=== PATIENT | female | born 1980 | race Caucasian/White ===

== ENCOUNTER 2018-12-19 17:25 | Emergency (ER) | payer OTHER, SELFPAY ==
[2018-12-19 17:38] VITALS: BP 126/68; PULSE 89; RESP 16; TEMP 37.4; O2SAT 98; BMI 29.7
--- NOTE | 2018-12-19 17:43 | DI.RAD.S_ITS ---
PROCEDURE: XR ANKLE LT MIN 3V INDICATIONS: L lateral ankle pain and swelling, inverted L foot 2wks ago TECHNIQUE: 3 views of the ankle were acquired. COMPARISON: None. FINDINGS: Bones: No fractures or dislocations. Ankle mortise is normally aligned. No suspicious bony lesions. There is a small developing plantar calcaneal spur. A bipartite medial sesamoid is incidentally noted. Soft tissues: No tibiotalar joint effusion. Achilles tendon appears normal in thickness. IMPRESSION: No acute osseous abnormality of the left ankle. Dictated by: Vijay Urbano M.D. on 12/19/2018 at 18:54 Approved by: Vijay Urbano M.D. on 12/19/2018 at 18:55
[2018-12-19] MEDS: IBUPROFEN 400 MG TABLET PO (17:46)
--- NOTE | 2018-12-19 18:29 | PC.NURSE ---
rolled left ankle 2 weeks ago, feeling fine, till moved the lawn, now with severe left ankle pain. denies fever.
--- NOTE | 2018-12-19 18:34 | PC.NURSE ---
Addendum entered by Vy Pichardo R.N. 12/19/18 18:35: has been treating the foot with ice and heat. Original Note: rolled ankle at home 2 weeks, moved the lawn yesterday, then starting having pain and swelling and worsen today.
--- NOTE | 2018-12-19 19:08 | ED.LOWEXIN ---
HPI - Extremity Injury (Lower) General Chief Complaint: Extremity Injury, Lower Stated Complaint: Lt ankle pain Time Seen by Provider: 12/19/18 19:02 Source: patient Mode of arrival: ambulatory Limitations: no limitations History of Present Illness HPI Narrative: Patient is a 38-year-old female presents with left ankle pain and swelling. She says she is about 2 weeks ago but was walking on it 30 min afterwards she really has not had any problem. Yesterday she said she mowed a large lawn and today it is significantly more swollen. She did not fall again her injury yesterday. She has no numbness or tingling. complaint: ankle injury Onset (ago): week(s) (2) Related Data Home Medications Medication Instructions Recorded Confirmed No Known Home Medications 12/19/18 12/19/18 Allergies Allergy/AdvReac Type Severity Reaction Status Date / Time No Known Drug Allergies Allergy Verified 12/19/18 17:42 Review of Systems Review of Systems GENERAL: Denies chills,fever HEENT: Denies throat pain RESPIRATORY: Denies dyspnea, cough, wheezing CARDIOVASCULAR: Denies chest pain, palpitations GASTROINTESTINAL: Denies nausea, vomiting MUSCULOSKELETAL: See HPI SKIN: No rash, no laceration, no pruritus NEUROLOGIC: Denies weakness, dizziness, headache, numbness 8 point review of systems is negative except for those stated above and HPI PFSH Medical History Patient denies significant medical history (Acute) Surgical History H/O vaginal hysterectomy (Acute) Social History Smoking Status: Never smoker Social History (Updated 12/19/18 @ 19:15 by Deborah House DO) marital status: Smoking Status: Never smoker Exam Initial Vital Signs Initial Vital Signs: Vital Signs Temperature 99.4 F 12/19/18 17:38 Pulse Rate 89 12/19/18 17:38 Respiratory Rate 16 12/19/18 17:38 Blood Pressure 126/68 12/19/18 17:38 Pulse Oximetry 98 12/19/18 17:38 GENERAL: Well-appearing, well-nourished and in no acute distress. CARDIOVASCULAR: peripheral pulses in tact, cap refill <2 sec RESPIRATORY: No respiratory distress, speaks in full sentences without difficulty EXTREMITIES: Normal range of motion, no clubbing or edema. Neurovascularly intact Left ankle lateral malleoli swelling distal pedal pulse in tact. Painful range of motion but able to do a Achilles intact. NEUROLOGICAL: Cranial nerves II through XII grossly intact. Normal gait and speech. SKIN: Warm, dry, no petechiae, no rashes or lesions. Course Orders Ordered: ED Orders 12/19/18 17:43 XR ankle LT min 3V Stat Discontinued Medications Ibuprofen (Advil) 400 mg PO NOW ONE Stop: 12/19/18 17:44 Last Admin: 12/19/18 17:46 Dose: 400 mg Vital Signs - 8 hr 12/19/18 17:38 12/19/18 19:09 Temperature 99.4 F Pulse Rate 89 85 Respiratory Rate 16 16 Blood Pressure 126/68 Blood Pressure [Right Arm] 115/69 Pulse Oximetry 98 94 MDM - Extremity Injury (Lower) Imaging Data Left ankle x-ray: Radiologist's impression: PROCEDURE: XR ANKLE LT MIN 3V INDICATIONS: L lateral ankle pain and swelling, inverted L foot 2wks ago TECHNIQUE: 3 views of the ankle were acquired. COMPARISON: None. FINDINGS: Bones: No fractures or dislocations. Ankle mortise is normally aligned. No suspicious bony lesions. There is a small developing plantar calcaneal spur. A bipartite medial sesamoid is incidentally noted. Soft tissues: No tibiotalar joint effusion. Achilles tendon appears normal in thickness. IMPRESSION: No acute osseous abnormality of the left ankle. Dictated by: Vijay Urbano M.D. on 12/19/2018 at 18:54 Discharge Plan Departure Patient Disposition: Home Clinical Impression: Left ankle sprain Qualifiers: Encounter type: initial encounter Involved ligament of ankle: other ligament Qualified Code(s): S93.492A - Sprain of other ligament of left ankle, initial encounter Discharge Date/Time: 12/19/18 19:26 Interventions: ED Discharge Assessment Last Done: 12/19/18 19:24 Instructions: DI for Ankle Sprain Activity Restrictions/Additional Instructions: *You have been diagnosed with left ankle sprain *What to do: Increase activity as tolerated, rest, ice, rest need ankle brace. If no improvement in 4-6 weeks he may require an MRI *Continue to take medications as directed Motrin 800mg every 8 hr with food if needed for pain *Follow up with your primary care provider in 2-3 days *Return to ER if you should have worsening pain, inability to walk any new, worsening or concerning symptoms Prescriptions: No Action No Known Home Medications RF: 0 Referrals: [facility] [Outside]
[2018-12-19 19:09] VITALS: BP 115/69; PULSE 85; RESP 16; O2SAT 94
== END 2018-12-19 19:26 | disposition home or self-care (01) ==
PROVIDERS: Emergency Provider Emergency Medicine
DX: S93.492A Sprain of other ligament of left ankle, initial encounter (principal)
CPT/HCPCS: 73610; 99283

== ENCOUNTER → 2020-04-20 07:26 | Outpatient (CLI) | payer OTHER, SELFPAY ==
--- NOTE | 2020-04-20 | DI.US.S_ITS ---
PROCEDURE: US SOFT TISSUE HEAD AND NECK INDICATIONS: MASS BEHIND RIGHT EAR TECHNIQUE: Real-time scanning was performed of the neck region of interest, with image documentation. COMPARISON: [facility], CT, PE STUDY (CTA CHEST), 07/12/2015, 11:03. FINDINGS: Ill-defined hypoechoic area in the subcutaneous tissues posterior to the right ear measuring 1.1 x 0.7 x 0.5 cm. No internal vascularity is demonstrated. No posterior acoustic shadowing. No fluid collection. IMPRESSION: Ill-defined hypoechoic area behind the right ear measuring 1.1 cm. This could represent scar tissue or recurrent mass. If clinically indicated ultrasound guided biopsy could be performed. Report of a prior mass being removed. Correlate with prior pathology. Dictated by: Romero Fountain M.D. on 04/20/2020 at 8:26 Approved by: Romero Fountain M.D. on 04/20/2020 at 8:30
== END ==
PROVIDERS: PCP Family Medicine; Referring Provider Nurse Practitioner Family; Visit Provider Nurse Practitioner Family
DX: R22.0 Localized swelling, mass and lump, head (principal)
CPT/HCPCS: 76536

== ENCOUNTER → 2020-09-04 06:59 | Outpatient (CLI) | payer OTHER, SELFPAY ==
--- NOTE | 2020-09-04 | DI.MRI.S_ITS ---
PROCEDURE: MR FEMUR RT WO CON INDICATIONS: Pain in right lower leg TECHNIQUE: Noncontrast coronal and sagittal T1 spin echo and STIR; axial T1 spin echo and T2 fast spin echo with fat saturation through the right femur. COMPARISON: None. FINDINGS: Image quality: Excellent. Bones: The visualized bone marrow demonstrates normal signal on all sequences. The overlying cortex appears intact. No fractures lines or intra-osseous lesions. Soft tissues: Surface skin marker is placed over anterolateral aspect of mid thigh. The scanned muscles demonstrate normal overall bulk and internal signal. Subcutaneous tissues appear normal as well. No soft tissue masses are present. IMPRESSION: 1. No discrete soft tissue mass or fluid collection is seen in right thigh soft tissue. No muscle or tendon signal abnormality. 2. No marrow signal abnormality. No finding to explain patient's symptoms. Dictated by: Surya Graves M.D. on 09/04/2020 at 8:38 Approved by: Surya Graves M.D. on 09/04/2020 at 8:40
== END ==
PROVIDERS: PCP Student in an Organized Health Care Education/Training Program; Referring Provider Student in an Organized Health Care Education/Training Program; Visit Provider Student in an Organized Health Care Education/Training Program
DX: M79.661 Pain in right lower leg (principal)
CPT/HCPCS: 73718

== ENCOUNTER 2020-12-20 11:24 | Emergency (ER) | payer BC, OTHER, SELFPAY ==
[2020-12-20 11:25] VITALS: BP 137/73; PULSE 102; RESP 15; TEMP 37.6; O2SAT 97; BMI 31.7
--- NOTE | 2020-12-20 11:31 | DI.RAD.S_ITS ---
PROCEDURE: XR CHEST 1V INDICATIONS: chest pain TECHNIQUE: One view of the chest was acquired. COMPARISON: [facility], , CHEST 2 VIEW, 07/12/2015, 9:51. FINDINGS: Surgical changes and devices: None. Lungs and pleura: Lungs are clear. No pleural effusions or pneumothorax. Mediastinum: Mediastinal contours appear normal. Heart size is normal. Bones and chest wall: No suspicious bony lesions. Overlying soft tissues appear unremarkable. IMPRESSION: No acute cardiopulmonary abnormality Dictated by: Neil Crowley M.D. on 12/20/2020 at 12:30 Approved by: Neil Crowley M.D. on 12/20/2020 at 12:31
[2020-12-20 11:56] LABS: Add Manual Diff / Slide Review NO; Basophils Absolute Auto 0 /uL (0-100); Basophils Percent Auto 0.3 % (0-2); Eosinophils Absolute Auto 100 /uL (0-450); Hematocrit 41.6 % (36-46); Hemoglobin 14.3 g/dL (12.0-16.0); Lymphocytes Absolute Auto 2600 /uL (1100-4500); Mean Corpuscular HGB Conc 34.4 % (30-36); Mean Corpuscular Hemoglobin 30.3 PG (26-34); Mean Corpuscular Volume 88.1 fL (80-100); Monocytes Absolute Auto 400 /uL (0-900); Monocytes Percent Auto 5.5 % (3-14); Neutrophils Absolute Auto 4500 /uL (1500-7000); Neutrophils Percent Auto 59.2 % (50-75); Platelet Count 234 X10^3/uL (150-400); Red Blood Cell Count 4.72 X10^6/uL (4.0-5.2); White Blood Cell Count 7.6 X10^3/uL (4.5-11.0)
[2020-12-20 12:03] LABS: Alanine Aminotransferase 19 IU/L (<35); Albumin 4.5 g/dL (3.5-5.0); Albumin Globulin Ratio 1.3 (1.0-2.8); Alkaline Phosphatase 80 U/L (38-126); Aspartate Aminotransferase 22 IU/L (14-36); BUN Creatinine Ratio 13.5 (6-22); Bilirubin Total 0.6 mg/dL (0.2-1.3); Blood Urea Nitrogen 14 mg/dL (7-17); Calcium 9.6 mg/dL (8.4-10.2); Carbon Dioxide 26 mmol/L (22-32); Chloride 107 mmol/L (98-107); Creatine Kinase 57 U/L (30-135); Estimated Glomerular Filt Rate 58.4 mL/min (>60); Globulin 3.4 g/dL (1.7-4.1); Glucose 99 mg/dL (70-100); HEMOLYSIS < 15 (0-50); Lipase 43 U/L (23-300); Potassium 4.3 mmol/L (3.4-5.1); Sodium 139 mmol/L (137-145); Total Protein 7.9 g/dL (6.3-8.2)
[2020-12-20 12:14] LABS: Troponin I < 0.012 ng/mL (0.01-0.034)
--- NOTE | 2020-12-20 14:29 | ED_ITS ---
HPI - Arrhythmia/Palpitations General Chief Complaint: Arrhythmia/Palpitations Stated Complaint: heart palpitations since yesterday, pain Time Seen by Provider: 12/20/20 14:29 Source: patient Mode of arrival: Ambulatory Limitations: no limitations History of Present Illness HPI narrative: This is a 40-year-old female comes in with complaint of heart palpitations since yesterday patient states she also had some things of discomfort from her chest. Patient states she, no cold cough or congestion, no chest pain or pressure but describes some ?Zings? in her chest and towards her back. Patient denies any shortness of breath she denies any nausea or vomiting. She denies any diaphoresis. She denies any other GI or urinary symptoms. She has not any appreciated any swelling in her upper lower extremities. She has not had any rash or skin changes. Patient states she has had extra beats in the past. She denies any other medical issues. She did have carpal tunnel surgery on her right forearm under local anesthesia 8 weeks ago. This is the opposite side of where she has had her sensations. Patient does states she had hysterectomy in the past, she did have a pulmonary embolism which was believed to be provoked by the surgery immediately after that. She denies tobacco, alcohol or illicit. Patient states that she came today because she has been having more extra beats or palpitations than normal. Related Data Home Medications Medication Instructions Recorded Confirmed No Known Home Medications 12/19/18 12/19/18 Allergies Allergy/AdvReac Type Severity Reaction Status Date / Time No Known Drug Allergies Allergy Verified 12/20/20 11:29 Review of Systems Review of Systems ROS Unobtainable: All systems reviewed & are unremarkable except as noted in HPI and below Patient History Medical History (Updated 12/20/20 @ 14:42 by Geneva Costa DO) Patient denies significant medical history Surgical History H/O vaginal hysterectomy Social History marital status: Smoking Status: Never smoker Smoking Status: Never smoker alcohol intake frequency: holidays/special occasions only Substance Use Type: does not use Exam Narrative Exam Narrative: GENERAL: Alert and oriented x three, well-nourished female mild distress. HEENT: Head normocephalic, atraumatic, EOMI, pupils reactive, face symmetric, moist mucous membranes NECK: Supple, full range of motion CARDIOVASCULAR: Regular rate and rhythm without murmurs, rubs or gallops. Known reproducible chest pain. RESPIRATORY: Breath sounds equal bilaterally, no wheezes rales or rhonchi. ABDOMEN: Soft, nontender. Normoactive bowel sounds all 4 quadrants. No guarding or rebound, rigidity, no mass : No CVA tenderness EXTREMITIES: Normal range of motion. Neurovascularly intact NEUROLOGICAL: Cranial nerves II through XII grossly intact. Moving all extremities SKIN: Warm, dry, no petechiae, no rashes or lesions. Initial Vital Signs Initial Vital Signs: Vital Signs Temperature 99.7 F H 12/20/20 11:25 Pulse Rate 102 H 12/20/20 11:25 Respiratory Rate 15 12/20/20 11:25 Blood Pressure 137/73 12/20/20 11:25 Pulse Oximetry 97 12/20/20 11:25 Scores HEART Score Heart Score history: Slightly Suspicious Heart Score EKG: Normal Heart Score Age: < 45 years old Heart Score risk factors: No known risk factors Heart Score troponin: < or = to normal limit Heart Score Total: 0 Course Orders Ordered: ED Orders 12/20/20 11:31 XR chest 1V Stat EKG-12 Lead Stat 12/20/20 11:45 Complete Blood Count AUTO DIFF Stat Comprehensive Metabolic Panel Stat Lipase Stat Troponin & CK Cardiac Panel Stat Vital Signs Vital signs: Vital Signs - 8 hr 12/20/20 11:25 12/20/20 14:54 Temperature 99.7 F H Pulse Rate 102 H 62 Respiratory Rate 15 18 Blood Pressure 137/73 119/56 L Pulse Oximetry 97 99 MDM - Arrhythmia/Palpitations Lab Data Attestation: I reviewed the patient's lab results. Result diagrams: 12/20/20 11:45 12/20/20 11:45 Labs: Lab Results 12/20/20 12/20/20 Range/Units 11:45 11:45 WBC 7.6 (4.5-11.0) X10^3/uL RBC 4.72 (4.0-5.2) X10^6/uL Hgb 14.3 (12.0-16.0) g/dL Hct 41.6 (36-46) % MCV 88.1 (80-100) fL MCH 30.3 (26-34) PG MCHC 34.4 (30-36) % RDW 13.0 (11.6-14.8) % Plt Count 234 (150-400) X10^3/uL Neut % (Auto) 59.2 (50-75) % Lymph % (Auto) 34.0 (25-40) % [place] % (Auto) 5.5 (3-14) % Eos % (Auto) 1.0 L (2-4) % Baso % (Auto) 0.3 (0-2) % Neut # (Auto) 4500 (4370-7967) /uL Lymph # (Auto) 2600 (6427-9693) /uL [place] # (Auto) 400 (0-900) /uL Eos # (Auto) 100 (0-450) /uL Baso # (Auto) 0 (0-100) /uL Sodium 139 (137-145) mmol/L Potassium 4.3 (3.4-5.1) mmol/L Chloride 107 (98-107) mmol/L Carbon Dioxide 26 (22-32) mmol/L BUN 14 (7-17) mg/dL Creatinine 1.04 (0.52-1.04) mg/dL Estimated GFR 58.4 L (>60) mL/min BUN/Creatinine Ratio 13.5 (6-22) Glucose 99 (70-100) mg/dL Calcium 9.6 (8.4-10.2) mg/dL Total Bilirubin 0.6 (0.2-1.3) mg/dL AST 22 (14-36) IU/L ALT 19 (<35) IU/L Alkaline Phosphatase 80 (38-126) U/L Total Creatine Kinase 57 (30-135) U/L CK-MB (CK-2) TNP CK-MB (CK-2) Rel Index TNP Troponin I < 0.012 (0.01-0.034) ng/mL Total Protein 7.9 (6.3-8.2) g/dL Albumin 4.5 (3.5-5.0) g/dL Globulin 3.4 (1.7-4.1) g/dL Albumin/Globulin Ratio 1.3 (1.0-2.8) Lipase 43 (23-300) U/L Imaging Data Chest x-ray: Radiologist's Impresson: Lexii Arboleda 40 F 1980 [facility] [place] [id number] ReportSigned Patient: Lexii Arboleda MMR#: [id number]: 1980Acct:[id number]/Sex: 40 / FDate of Service: 12/20/20Loc: EDAccession Number: [id number] Procedure: XR chest 1V Ordering Provider: Carol Sevilla MD PROCEDURE: XR CHEST 1V INDICATIONS: chest pain TECHNIQUE: One view of the chest was acquired. COMPARISON: [facility], , CHEST 2 VIEW, 07/12/2015, 9:51. FINDINGS: Surgical changes and devices: None. Lungs and pleura: Lungs are clear. No pleural effusions or pneumothorax. Mediastinum: Mediastinal contours appear normal. Heart size is normal. Bones and chest wall: No suspicious bony lesions. Overlying soft tissues appear unremarkable. IMPRESSION: No acute cardiopulmonary abnormality Dictated by: Neil Crowley M.D. on 12/20/2020 at 12:30 Approved by: Neil Crowley M.D. on 12/20/2020 at 12:31 ECG Data Attestation: I personally reviewed and interpreted this ECG as follows: Prior ECG tracings: available for review Interpretation: Sinus rhythm rate of 90 P are 126 QRS is 74 and QTC 433. No acute ST changes appreciated. Patient has prior from 07/12/2015. MDM Narrative Medical decision making narrative: This is a 40-year-old female comes in with complaint of palpitations and chest discomfort but she describes it not as pain but more as a ?Zing? in her chest occasionally. Patient EKG, troponin and labs do not show any acute findings. Chest x-ray is negative. Discussed with patient we do not initially ordered a D-dimer and with her history would be appropriate. After some conversation risk versus benefit patient defers adding a D-dimer to her lab work or doing additional workup. Return precautions were discussed patient is aware that we have not completely ruled out this possibility although based on her symptomatology this seems unlikely. Discharge Plan Departure Patient Disposition: Home Clinical Impression: Palpitations Instructions: DI for Palpitations Activity Restrictions/Additional Instructions: Follow up with your physician in the next week for recheck if you are not having any improvement. We have not completely ruled out a pulmonary embolism today so please return if you have new or changing symptoms. Make sure you are drinking plenty of fluids. Please return for new or worsening symptoms, worsening chest pain, shortness of breath, palpitations, new swelling of your extremities, persistent vomiting, new swelling of the extremity, loss of sensation, weakness or other new or concerning symptoms back Prescriptions: No Action No Known Home Medications RF: 0 Referrals: Nico Fabian DO [Primary Care Provider] -
[2020-12-20 14:54] VITALS: BP 119/56; PULSE 62; RESP 18; O2SAT 99
== END 2020-12-20 14:54 | disposition home or self-care (01) ==
PROVIDERS: Emergency Medicine; Emergency Provider Emergency Medicine; PCP Student in an Organized Health Care Education/Training Program
DX: R00.2 Palpitations (principal); R07.9 Chest pain, unspecified
CPT/HCPCS: 36415; 71045; 80053; 82550; 83690; 84484; 85025; 93005; 93010; 99283; 99284

== ENCOUNTER → 2021-02-08 17:32 | Outpatient (CLI) | payer BC, OTHER, SELFPAY ==
[2021-02-08 18:27] LABS: Hemoglobin A1C% w Est Avg Glu 5.1 % (4.0-6.0)
[2021-02-08 19:21] LABS: TSH w/ Reflex to FT4 2.95 uIU/mL (0.47-4.68)
== END ==
PROVIDERS: PCP Student in an Organized Health Care Education/Training Program; Referring Provider Internal Medicine Cardiovascular Disease; Visit Provider Internal Medicine Cardiovascular Disease
DX: E78.5 Hyperlipidemia, unspecified (principal); Z68.32 Body mass index [BMI] 32.0-32.9, adult
CPT/HCPCS: 36415; 83036; 84443

== ENCOUNTER → 2021-02-14 09:32 | Outpatient (CLI) | payer OTHER, SELFPAY ==
[2021-02-15 10:53] LABS: COVID19 -Nasal RAPID POSITIVE (Negative)
== END ==
PROVIDERS: PCP Student in an Organized Health Care Education/Training Program; Visit Provider Physician Assistant
DX: U07.1 COVID-19 (principal)
CPT/HCPCS: 87635

== ENCOUNTER → 2021-10-02 10:09 | Outpatient (CLI) | payer OTHER, SELFPAY ==
[2021-10-02 11:17] LABS: Cholesterol 244 mg/dL (140-199); HDL Cholesterol 33 mg/dL (40-60); LDL Cholesterol Calculated 151 mg/dL (<100); Triglycerides 302 mg/dL (35-150)
== END ==
PROVIDERS: PCP Student in an Organized Health Care Education/Training Program; Referring Provider Nurse Practitioner Acute Care; Visit Provider Nurse Practitioner Acute Care
DX: E78.5 Hyperlipidemia, unspecified (principal)
CPT/HCPCS: 36415; 80061

== ENCOUNTER → 2022-05-12 09:31 | Outpatient (CLI) | payer OTHER, SELFPAY ==
[2022-05-12 10:17] LABS: Cholesterol 220 mg/dL (140-199); HDL Cholesterol 29 mg/dL (40-60); LDL Cholesterol Calculated 153 mg/dL (<100); Triglycerides 192 mg/dL (35-150)
== END ==
PROVIDERS: PCP Student in an Organized Health Care Education/Training Program; Referring Provider Internal Medicine Cardiovascular Disease; Visit Provider Internal Medicine Cardiovascular Disease
DX: E78.5 Hyperlipidemia, unspecified (principal)
CPT/HCPCS: 36415; 80061

== ENCOUNTER → 2022-10-28 08:11 | Outpatient (CLI) | payer OTHER, SELFPAY ==
--- NOTE | 2022-10-28 | DI.CT.S_ITS ---
PROCEDURE: CT SINUS SCREEN WO CON INDICATIONS: CHRONIC PANSINUSITIS/NASAL OBSTRUCTION TECHNIQUE: Noncontrast 3.0 mm axial images acquired from the frontal sinuses to the mid-sella, with coronal and sagittal reformats. For radiation dose reduction, the following was used: automated exposure control, adjustment of mA and/or kV according to patient size. COMPARISON: None. FINDINGS: Image quality: Excellent. Maxillary Sinuses: Moderate mucosal thickening is seen within the inferior maxillary sinuses. The medial montoya of the maxillary sinuses are mildly demineralized. Ethmoid Air Cells: No bony remodeling or destruction. Sinuses are clear. Sphenoid Sinuses: No bony remodeling or destruction. Sinuses are clear. Frontal Sinuses: No bony remodeling or destruction. Sinuses are clear. Ostiomeatal Complexes: The ostiomeatal complexes are patent, yet they are constitutionally narrowed, with bilateral Duncan cells. Miscellaneous: Visualized intra-orbital contents are normal. No senait bullosa or paradoxical turbinate curvature. There is mild left nasal septal deviation. IMPRESSION: Focal maxillary sinus disease, with moderate mucosal thickening inferiorly. The ostiomeatal complexes are patent, yet they are constitutionally narrowed, with bilateral Duncan cells. There is demineralization of the medial montoya of the maxillary sinuses, which is consistent with chronic sinusitis. Mild leftward nasal septal deviation. Dictated by: Mark Moreno M.D. on 10/28/2022 at 10:07 Approved by: Mark Moreno M.D. on 10/28/2022 at 10:08
== END ==
PROVIDERS: PCP Student in an Organized Health Care Education/Training Program; Referring Provider Otolaryngology; Visit Provider Otolaryngology
DX: J32.4 Chronic pansinusitis (principal); J34.89 Other specified disorders of nose and nasal sinuses; J34.2 Deviated nasal septum
CPT/HCPCS: 70486

== ENCOUNTER → 2022-11-13 06:59 | Outpatient (CLI) | payer OTHER, SELFPAY ==
--- NOTE | 2022-11-13 | DI.MRI.S_ITS ---
PROCEDURE: MR PELVIS WO/W CON INDICATIONS: Unspecified ovarian cyst, unspecified side TECHNIQUE: Coronal HASTE, sagittal breath-hold T2 FSE; axial T1 FSE with and without fat saturation through the pelvis. Optional long- and short-axis uterine nonbreath-hold T2 FSE through the uterus. Sagittal or axial dynamic VIBE during administration of contrast. Post-contrast axial or coronal VIBE/2-D FLASH with fat saturation from the iliac crests to the symphysis. Optional diffusion weighted imaging and ADC may be performed. COMPARISON: None. FINDINGS: Image quality: Excellent. Uterus: Uterus is absent. The vaginal cuff and vaginal canal have a grossly normal appearance. Adnexa: The right ovary measures 3.3 x 2.9 x 2.4 cm and has a normal morphology with several subcentimeter follicles. There is a peripherally vascular involuting dominant follicle in the right ovary consistent with a corpus luteum. The left ovary was not identified, likely surgically absent. No suspicious masses in either adnexa. Urinary system: Bladder wall is normal in thickness. Distal ureters are non distended. Urethra appears normal in morphology. Nodes and vessels: No pelvic or inguinal adenopathy by size criteria. Iliac vessels are normal in size. Bowel and peritoneum: No pathologic free pelvic fluid. Inferior colon and small bowel loops are normal in caliber. Soft tissues: No inguinal hernias. No findings of pelvic floor incompetence in the absence of provocation. Bones: Marrow demonstrates normal overall signal. IMPRESSION: 1. Normal right ovary. 2. Prior hysterectomy and probable left 0 fract me. Dictated by: Kia Gonzalez M.D. on 11/13/2022 at 11:15 Approved by: Kia Gonzalez M.D. on 11/13/2022 at 11:56
== END ==
PROVIDERS: PCP Student in an Organized Health Care Education/Training Program; Referring Provider Nurse Practitioner Family; Visit Provider Nurse Practitioner Family
DX: N83.209 Unspecified ovarian cyst, unspecified side (principal); Z90.710 Acquired absence of both cervix and uterus
CPT/HCPCS: 72197; A9579

== ENCOUNTER → 2022-11-19 10:01 | Outpatient (CLI) | payer OTHER, SELFPAY ==
[2022-11-19 11:11] LABS: Add Manual Diff / Slide Review NO; Basophils Absolute Auto 0 /uL (0-100); Basophils Percent Auto 0.2 % (0-2); Eosinophils Absolute Auto 100 /uL (0-450); Eosinophils Percent Auto 1.5 % (2-4); Hematocrit 38.7 % (36-46); Hemoglobin 13.4 g/dL (12.0-16.0); Lymphocytes Absolute Auto 2800 /uL (1100-4500); Lymphocytes Percent Auto 34.7 % (25-40); Mean Corpuscular HGB Conc 34.6 % (30-36); Mean Corpuscular Hemoglobin 30.7 PG (26-34); Mean Corpuscular Volume 88.8 fL (80-100); Monocytes Absolute Auto 400 /uL (0-900); Monocytes Percent Auto 4.9 % (3-14); Neutrophils Absolute Auto 4700 /uL (1500-7000); Neutrophils Percent Auto 58.7 % (50-75); Platelet Count 204 X10^3/uL (150-400); Red Blood Cell Count 4.36 X10^6/uL (4.0-5.2)
[2022-11-19 11:35] LABS: Alanine Aminotransferase 24 IU/L (<35); Albumin 4.1 g/dL (3.5-5.0); Albumin Globulin Ratio 1.3 (1.0-2.8); Alkaline Phosphatase 72 U/L (38-126); Aspartate Aminotransferase 19 IU/L (14-36); BUN Creatinine Ratio 10.6 (6-22); Bilirubin Total 0.4 mg/dL (0.2-1.3); Blood Urea Nitrogen 10 mg/dL (7-17); Calcium 8.5 mg/dL (8.4-10.2); Carbon Dioxide 27 mmol/L (22-32); Chloride 104 mmol/L (98-107); Cholesterol 214 mg/dL (140-199); Estimated Glomerular Filt Rate > 60 mL/min (>60); Globulin 3.2 g/dL (1.7-4.1); Glucose 97 mg/dL (70-100); HDL Cholesterol 27 mg/dL (40-60); HEMOLYSIS < 15 (0-50); LDL Cholesterol Calculated 147 mg/dL (<100); Potassium 4.1 mmol/L (3.4-5.1); Sodium 137 mmol/L (137-145); Total Protein 7.3 g/dL (6.3-8.2); Triglycerides 199 mg/dL (35-150)
[2022-11-19 12:10] LABS: TSH w/ Reflex to FT4 1.66 uIU/mL (0.47-4.68)
[2022-11-20 07:36] LABS: Labcorp Hemoglobin (Hb) A1c 5.2 % (4.8-5.6)
== END ==
PROVIDERS: PCP Student in an Organized Health Care Education/Training Program; Referring Provider Internal Medicine Cardiovascular Disease; Visit Provider Internal Medicine Cardiovascular Disease
DX: Z13.1 Encounter for screening for diabetes mellitus (principal); E78.5 Hyperlipidemia, unspecified; R07.2 Precordial pain
CPT/HCPCS: 36415; 80053; 80061; 83036; 84443; 85025

== ENCOUNTER 2023-01-19 00:02 | Emergency (ER) | payer OTHER, SELFPAY ==
[2023-01-19 00:11] VITALS: BP 143/79; PULSE 78; RESP 16; TEMP 36.9; O2SAT 99
[2023-01-19 00:57] LABS: Appearance Urine UA CLEAR; Bilirubin Urine UA NEGATIVE (NEGATIVE); Color Urine UA YELLOW; Glucose Urine UA NEGATIVE (Negative); Ketones Urine UA NEGATIVE (NEGATIVE); Leukocyte Esterase Urine UA NEGATIVE (NEGATIVE); Nitrite Urine UA NEGATIVE (Negative); Occult Blood Urine UA 1+ (Negative); Protein Urine UA NEGATIVE (Negative); Urobilinogen Urine UA 0.2 E.U./dL (0.2)
[2023-01-19 01:07] LABS: Bacteria Urine Few (2-10); Culture Indicated Urine Cult Not Indicated; RBC Urine 1-5/HPF (0-5/HPF); Squamous Epithelial Cell Urine 1-5 /HPF (0-5/HPF); WBC Urine None Seen (0-5/HPF)
--- NOTE | 2023-01-19 01:24 | ED.GENADULT ---
HPI - General Adult General Chief complaint: Urogenital-Female Stated complaint: PASSED A KIDNEY STONE Time Seen by Provider: 01/19/23 01:08 Source: patient Mode of arrival: Ambulatory History of Present Illness HPI narrative: 42-year-old woman presents with acute abdominal pain cramping low pelvis started at 5:00 p.m. this evening she was waiting for 4 hours in another emergency department and was not seen [facility] on the way home and when she went to void she passed kidney stone. Still describing some diffuse pelvic pain significantly improved but still achy. She complains of a low-grade headache. She has been able to eat and drink and has been focusing on drinking quite a bit of water. No fevers or chills. She is never had prior kidney stones. She is wondering if any of her previous imaging studies show stones. She recently had a pelvic MRI that did not show any ureteral distention but did not image her kidneys. Related Data Home Medications Medication Instructions Recorded Confirmed No Known Home Medications 12/19/18 12/19/18 Allergies Allergy/AdvReac Type Severity Reaction Status Date / Time No Known Drug Allergies Allergy Verified 12/20/20 11:29 Review of Systems Review of Systems Narrative: Pertinent positive and negative findings as per HPI Patient History Medical History (Updated 01/19/23 @ 01:33 by Carol Sevilla MD) Kidney stone Patient denies significant medical history Surgical History H/O vaginal hysterectomy Social History marital status: Smoking Status: Never smoker Smoking Status: Never smoker alcohol intake frequency: holidays/special occasions only Substance Use Type: does not use Exam Initial Vital Signs Initial Vital Signs: Vital Signs Temperature 98.5 F 01/19/23 00:11 Pulse Rate 78 01/19/23 00:11 Respiratory Rate 16 01/19/23 00:11 Blood Pressure 143/79 H 01/19/23 00:11 Pulse Oximetry 99 01/19/23 00:11 Oxygen Delivery Method Room Air 01/19/23 00:11 General: Healthy appearing, in no acute distress. Able to give a complete and coherent history. Well-nourished well-developed HEENT: Moist mucous membranes, normal sclera with reactive pupils, Respiratory: Lungs are clear to auscultation, no wheezing no rales no rhonchi. Full and symmetrical air movement Cardiac: Regular rate and rhythm no murmurs no bruits Abdomen: Soft, mild tenderness in the pelvic area without rebound or guarding good bowel tones, no flank pain Skin: Warm and dry, no rashes Neurologic: Grossly neurologically intact with no obvious asymmetries or abnormalities Extremities: No trauma, well perfused Psych: Cooperative, appropriate insight and affect Course Orders Ordered: ED Orders 01/19/23 00:49 UA Complete [Urinalysis and Microscopic] Stat Discontinued Medications Ibuprofen (Ibuprofen 400 Mg Tablet) 400 mg PO NOW ONE Stop: 01/19/23 01:24 Ondansetron HCl (Ondansetron 4 Mg Odt) 4 mg SL NOW ONE Stop: 01/19/23 01:24 Oxycodone/Acetaminophen (Oxycodone/Acetaminophen 5/325 Tablet) 1 tab PO NOW ONE Stop: 01/19/23 01:24 Vital Signs Vital signs: Vital Signs - 8 hr 01/19/23 00:11 Temperature 98.5 F Pulse Rate 78 Respiratory Rate 16 Blood Pressure 143/79 H Pulse Oximetry 99 Oxygen Delivery Method Room Air Medical Decision Making Lab Data Labs: Lab Results 01/19/23 Range/Units 00:49 Urine Color Yellow Urine Appearance Clear Urine pH 6.0 (4.5-8.0) Ur Specific [place] 1.020 (1.000-1.035) Urine Protein Negative (Negative) Urine Glucose (UA) Negative (Negative) g/dL Urine Ketones Negative (NEGATIVE) Urine Occult Blood 1+ H (Negative) Urine Nitrate Negative (Negative) Urine Bilirubin Negative (NEGATIVE) Urine Urobilinogen 0.2 (0.2) E.U./dL Ur Leukocyte Esterase Negative (NEGATIVE) Urine RBC 1-5/hpf (0-5/HPF) Urine WBC None seen (0-5/HPF) Ur Squamous Epith Cells 1-5 /hpf (0-5/HPF) Urine Bacteria Few (2-10) H (None) Ur Culture Indicated? Cult not indicated Urine Dip Bedside Urine Glucose Negative Bedside Urine Bilirubin - Negative Bedside Urine Ketone - Negative Urine Specific [place] 1.015 Bedside Urine Occult Blood ++ Bedside Urine pH 6.0 Bedside Urine Protein - Negative Bedside Urine Urobilinogen - Negative Bedside Urine Nitrite - Negative Bedside Urine Leukocytes - Negative Esterase Point of care testing: Urine Dip Bedside Urine Glucose Negative Bedside Urine Bilirubin - Negative Bedside Urine Ketone - Negative Urine Specific [place] 1.015 Bedside Urine Occult Blood ++ Bedside Urine pH 6.0 Bedside Urine Protein - Negative Bedside Urine Urobilinogen - Negative Bedside Urine Nitrite - Negative Bedside Urine Leukocytes - Negative Esterase MDM Narrative Medical decision making narrative: CC: Passed a kidney stone after 5 hours of crampy abdominal pain. His an acute finding uncertain prognosis Data collected from: patient, Medical records reviewed: No prior history of kidney stones Differential considered: Kidney stone, bladder infection, pyelonephritis, Exam documented above, pertinent findings include: Mild low pelvic pain without rebound or guarding no flank pain Lab Test results independently reviewed as above. Pertinent findings: Urinalysis has acute blood few bacteria no leukocytes Imaging studies independently reviewed: Pelvic MRI from November is reviewed. Discussion: 42-year-old woman with no prior history of kidney stone unexplained abdominal pain and then passed a kidney stone. Pain has essentially resolved. She complains of a headache. No fevers no dysuria. She has not had prior imaging of her abdomen/kidneys so I do not know if she has more stones. With shared decision making we opted to not do any imaging today as it is not going to change any of the recommendations. At this point recommendations are ibuprofen and Tylenol plenty of fluids return if she has recurrent symptoms or develops symptoms to suggest infection or urinary tract complaints. She is safe for discharge home Discharge Plan Departure Patient Disposition: Home Clinical Impression: Kidney stone Instructions: DI for Kidney Stones Activity Restrictions/Additional Instructions: Thank you for coming in today The fact that you passed a kidney stone and your symptoms change is very encouraging. Kidney stones do leave quite a bit of irritation as there passing which likely explains the sensation that you still need to pee. Your urine shows some blood but nothing that looks like a bladder infection. I did look back over previous imaging studies but you actually have not had any imaging studies looked a your kidneys. At this time I do not think that you need to have a CT scan that will give you information that will not change any recommendations. Using 400 mg of ibuprofen (2 [id number] pills) and 1 Tylenol every 6 hours can be very helpful in controlling pain. I have given you a couple of Percocet and for severe pain you can use 400 mg of ibuprofen and 1 Percocet. I have also given you some Zofran if you are continuing to have some nausea. Continue to drink plenty of water as you are already doing If you find that you are getting worse or develop any new symptoms, please feel free to return to the emergency department for further evaluation. Prescriptions: No Action No Known Home Medications Referrals: Nico Fabian DO [Primary Care Provider] - Stand Alone Forms: Patient Portal/API
[2023-01-19] MEDS: OXYCODONE/ACETAMINOPHEN 5/325 TABLET 1 TAB PO (01:29)
[2023-01-19] MEDS: IBUPROFEN 400 MG TABLET PO (01:29)
[2023-01-19] MEDS: ONDANSETRON 4 MG ODT SL (01:30)
[2023-01-19] MEDS: ONDANSETRON 4 MG ODT PREPACK 1 BOTTLE MISC (01:41)
[2023-01-19] MEDS: OXYCODONE/APAP 5/325 PREPACK 1 BOTTLE MISC (01:41)
[2023-01-19 01:43] VITALS: BP 116/67; PULSE 67; RESP 16; O2SAT 97
== END 2023-01-19 01:44 | disposition home or self-care (01) ==
PROVIDERS: Emergency Provider Emergency Medicine; PCP Student in an Organized Health Care Education/Training Program
DX: N20.0 Calculus of kidney (principal)
CPT/HCPCS: 81001; 81003; 99283

== ENCOUNTER → 2023-02-23 09:25 | Outpatient (CLI) | payer OTHER, SELFPAY ==
[2023-02-23 11:21] LABS: Alanine Aminotransferase 21 IU/L (<35); Albumin 3.9 g/dL (3.5-5.0); Albumin Globulin Ratio 1.3 (1.0-2.8); Alkaline Phosphatase 77 U/L (38-126); Aspartate Aminotransferase 21 IU/L (14-36); Bilirubin Total 0.5 mg/dL (0.2-1.3); Bilirubin Unconjugated 0.5 mg/dL (0.0-1.1); Cholesterol 133 mg/dL (140-199); HDL Cholesterol 33 mg/dL (40-60); HEMOLYSIS < 15 (0-50); LDL Cholesterol Calculated 71 mg/dL (<100); Total Protein 6.9 g/dL (6.3-8.2); Triglycerides 143 mg/dL (35-150)
== END ==
PROVIDERS: PCP Student in an Organized Health Care Education/Training Program; Referring Provider Internal Medicine Cardiovascular Disease; Visit Provider Internal Medicine Cardiovascular Disease
DX: E78.5 Hyperlipidemia, unspecified (principal)
CPT/HCPCS: 36415; 80061; 80076

== ENCOUNTER 2023-03-24 11:32 | Emergency (ER) | payer OTHER, SELFPAY ==
[2023-03-24 11:47] VITALS: BP 142/79; PULSE 110; RESP 18; TEMP 37.2; O2SAT 97; BMI 30.2
--- NOTE | 2023-03-24 11:52 | DI.RAD.S_ITS ---
PROCEDURE: XR CHEST 1V INDICATIONS: suspected sepsis TECHNIQUE: One view of the chest was acquired. COMPARISON: [facility], CR, XR CHEST 1V, 12/20/2020, 11:59. FINDINGS: Surgical changes and devices: None. Lungs and pleura: Lungs are clear. No pleural effusions or pneumothorax. Mediastinum: Mediastinal contours appear normal. Heart size is normal. Bones and chest wall: No suspicious bony lesions. Overlying soft tissues appear unremarkable. IMPRESSION: No acute process. Dictated by: Evangelist Carroll M.D. on 03/24/2023 at 12:10 Approved by: Evangelist Carroll M.D. on 03/24/2023 at 12:10
[2023-03-24] MEDS: SODIUM CHLORIDE 0.9% 1,000 ML 1000 ML IV (12:10)
[2023-03-24 12:36] LABS: INR 1.1 (0.9-1.3); Prothrombin Time 12.7 SECONDS (10.1-12.7)
[2023-03-24 12:39] LABS: PTT Partial Thromboplastin Tim 30 SECONDS (26-36)
[2023-03-24 12:40] LABS: Add Manual Diff / Slide Review NO; Basophils Absolute Auto 0 /uL (0-100); Basophils Percent Auto 0.4 % (0-2); Eosinophils Absolute Auto 300 /uL (0-450); Eosinophils Percent Auto 3.6 % (2-4); Hematocrit 39.7 % (36-46); Hemoglobin 13.9 g/dL (12.0-16.0); Lymphocytes Absolute Auto 2600 /uL (1100-4500); Mean Corpuscular Hemoglobin 30.8 PG (26-34); Monocytes Absolute Auto 500 /uL (0-900); Monocytes Percent Auto 6.7 % (3-14); Neutrophils Absolute Auto 4100 /uL (1500-7000); Neutrophils Percent Auto 55.3 % (50-75); Platelet Count 216 X10^3/uL (150-400); Red Blood Cell Count 4.51 X10^6/uL (4.0-5.2); Red Cell Distribution Width 12.9 % (11.6-14.8); White Blood Cell Count 7.5 X10^3/uL (4.5-11.0)
[2023-03-24 12:42] LABS: Alanine Aminotransferase 19 IU/L (<35); Albumin 4.3 g/dL (3.5-5.0); Albumin Globulin Ratio 1.3 (1.0-2.8); Alkaline Phosphatase 72 U/L (38-126); Aspartate Aminotransferase 19 IU/L (14-36); BUN Creatinine Ratio 13.5 (6-22); Bilirubin Total 0.5 mg/dL (0.2-1.3); Blood Urea Nitrogen 10 mg/dL (7-17); Calcium 9.2 mg/dL (8.4-10.2); Carbon Dioxide 24 mmol/L (22-32); Chloride 105 mmol/L (98-107); Estimated Glomerular Filt Rate > 60 mL/min (>60); Globulin 3.4 g/dL (1.7-4.1); Glucose 86 mg/dL (70-100); HEMOLYSIS 19 (0-50); Lipase 48 U/L (23-300); Potassium 4.3 mmol/L (3.4-5.1); Sodium 136 mmol/L (137-145); Total Protein 7.7 g/dL (6.3-8.2)
[2023-03-24 12:49] VITALS: BP 109/61; PULSE 90; RESP 18; TEMP 37.2; O2SAT 98
[2023-03-24 12:59] LABS: Procalcitonin 0.07 ng/mL (<0.5)
[2023-03-24 13:01] VITALS: BP 120/72; PULSE 97; O2SAT 98
[2023-03-24 13:02] LABS: Bacteria Urine Many (>30); RBC Urine 1-5/HPF (0-5/HPF); WBC Urine 1-5/HPF (0-5/HPF)
[2023-03-24 13:03] LABS: Culture Indicated Urine Specimen Cultured; Squamous Epithelial Cell Urine 0-1 /HPF (0-5/HPF)
[2023-03-24 13:13] LABS: Influenza A - CEPHEID Flu A NEGATIVE (NEGATIVE); Influenza B - CEPHEID Flu B NEGATIVE (NEGATIVE); Respiratory Syncytial Virus Negative (Negative)
[2023-03-24 13:17] LABS: COVID-19 CEPHEID 4-PLEX PCR Negative (Negative)
[2023-03-24 13:30] VITALS: PULSE 82; RESP 16; O2SAT 99
--- NOTE | 2023-03-24 13:51 | ED_ITS ---
HPI - URI/Sore Throat <Chris Diaz PA-C - Last Filed: 03/24/23 13:57> General Chief Complaint: Upper Respiratory Symptoms Stated Complaint: cheat cold T-14/coughing up phglem w/blood Time Seen by Provider: 03/24/23 12:34 Source: patient Mode of arrival: Ambulatory History of Present Illness HPI Narrative: 42-year-old female with no reported past medical history presents to the ED with URI symptoms and chest congestion for 10 days. Patient's symptoms started 10 days ago with rhinorrhea, nasal congestion, cough, fever. Most of patient's symptoms have subsided, however she has been having fevers on and off. Patient states that the most bothersome symptom is the residual cough and chest congestion. Patient denies chest pain, shortness of breath, nausea, vomiting. Patient has been taking benzonatate without any relief. Related Data Previous Rx's Medication Instructions Recorded codeine 10 mg-guaifenesin 100 mg/5 5 ml PO Q6H PRN cough #120 mL 03/24/23 mL oral liquid Allergies Allergy/AdvReac Type Severity Reaction Status Date / Time No Known Drug Allergies Allergy Verified 12/20/20 11:29 Review of Systems <Chris Diaz PA-C - Last Filed: 03/24/23 13:57> Review of Systems ROS Unobtainable: All systems reviewed & are unremarkable except as noted in HPI and below Constitutional Constitutional: Denies chills, Denies fatigue, Reports fever(s), Denies frequent falls, Denies lethargy and Denies weakness Eyes Eyes: Denies change in vision, Denies eye discharge, Denies irritation and Denies loss of vision ENT Ears, Nose, Mouth, and Throat: Denies change in voice, Denies dizziness, Denies neck pain, Denies sore throat and Denies throat swelling Cardiovascular Cardiovascular: Denies chest pain, Denies irregular heart rhythm, Denies lightheadedness, Denies palpitations, Denies dyspnea, Denies dyspnea on exertion and Denies orthopnea Respiratory Respiratory: Reports chest congestion, Reports cough, Denies dyspnea, Denies dyspnea on exertion and Denies wheezing Gastrointestinal Gastrointestinal: Denies abdominal pain, Denies change in bowel habits, Denies diarrhea, Denies nausea and Denies vomiting Genitourinary Genitourinary: Denies hematuria, Denies flank pain, Denies urinary incontinence and Denies urinary urgency Musculoskeletal Musculoskeletal: Denies back pain, Denies muscle weakness, Denies neck pain, Denies numbness and Denies tingling Integumentary/Breasts Skin/Breast: Denies pruritus, Denies erythema, Denies rash and Denies wounds Neurologic Neurologic: Denies behavioral changes, Denies confusion, Denies dizziness, Denies frequent falls, Denies loss of vision, Denies numbness, Denies tingling and Denies weakness Psychiatric Psychiatric: Denies anxiety, Denies behavioral changes, Denies confusion, Denies depression, Denies homicidal ideation and Denies suicidal ideation Endocrine Endocrine: Denies fatigue, Denies flushing and Denies palpitations Hematologic/Lymphatic Hematologic/Lymphatic: Denies easy bruising Allergic/Immunologic Allergic/Immunologic: Denies urticaria, Denies throat swelling and Denies wheezing Patient History <Chris Diaz PA-C - Last Filed: 03/24/23 13:57> Medical History Kidney stone Patient denies significant medical history Surgical History H/O vaginal hysterectomy Social History marital status: Smoking Status: Never smoker Smoking Status: Never smoker alcohol intake frequency: holidays/special occasions only Substance Use Type: does not use Exam <Chris Diaz PA-C - Last Filed: 03/24/23 13:57> Narrative Exam Narrative: Const General:?cooperative, healthy appearing and comfortable [facility] Head:?normal to inspection Ears:?hearing grossly normal bilaterally Nose:?external nose normal Face and sinus:?normal facial exam and sinuses nontender Mouth:?oral mucosae normal Throat:?posterior oropharynx normal Eyes General:?appearance normal, both eyes and all related structures Neck Neck:?normal visual inspection and no lymphadenopathy noted Resp Effort & Inspection:?normal respiratory effort Auscultation:?clear to auscultation bilaterally Cardio Rate:?regular rate Rhythm:?regular rhythm Neuro General:?patient alert, patient awake and patient oriented x3 Initial Vital Signs Initial Vital Signs: Vital Signs Temperature 99 F 03/24/23 11:47 Pulse Rate 110 H 03/24/23 11:47 Respiratory Rate 18 03/24/23 11:47 Blood Pressure 142/79 H 03/24/23 11:47 Pulse Oximetry 97 03/24/23 11:47 Oxygen Delivery Method Room Air 03/24/23 11:47 <Deborah House DO - Last Filed: 03/26/23 01:16> Initial Vital Signs Initial Vital Signs: Vital Signs Temperature 99 F 03/24/23 11:47 Pulse Rate 110 H 03/24/23 11:47 Respiratory Rate 18 03/24/23 11:47 Blood Pressure 142/79 H 03/24/23 11:47 Pulse Oximetry 97 03/24/23 11:47 Oxygen Delivery Method Room Air 03/24/23 11:47 Course <Chris Diaz PA-C - Last Filed: 03/24/23 13:57> Orders Ordered: Discontinued Medications Sodium Chloride (Normal Saline 0.9%) 1,000 mls @ 1,000 mls/hr IV BOLUS ONE Stop: 03/24/23 12:51 Last Infusion: 03/24/23 13:30 Dose: 0 mls/hr Documented By: Admin: 03/24/23 12:10 Dose: 1,000 mls/hr Documented By: PRAVIN Vital Signs Vital signs: Vital Signs - 8 hr 03/24/23 11:47 03/24/23 12:49 03/24/23 13:01 Temperature 99 F 98.9 F Pulse Rate 110 H 90 Respiratory Rate 18 18 Blood Pressure 142/79 H 109/61 120/72 Pulse Oximetry 97 98 Oxygen Delivery Method Room Air Room Air 03/24/23 13:01 03/24/23 13:30 Temperature Pulse Rate 97 H 82 Respiratory Rate 16 Blood Pressure Pulse Oximetry 98 99 Oxygen Delivery Method <Deborah House DO - Last Filed: 03/26/23 01:16> Orders Ordered: Discontinued Medications Sodium Chloride (Normal Saline 0.9%) 1,000 mls @ 1,000 mls/hr IV BOLUS ONE Stop: 03/24/23 12:51 Last Infusion: 03/24/23 13:30 Dose: 0 mls/hr Documented By: Admin: 03/24/23 12:10 Dose: 1,000 mls/hr Documented By: PRAVIN Vital Signs Vital signs: Vital Signs - 8 hr 03/24/23 11:47 03/24/23 12:49 03/24/23 13:01 Temperature 99 F 98.9 F Pulse Rate 110 H 90 Respiratory Rate 18 18 Blood Pressure 142/79 H 109/61 120/72 Pulse Oximetry 97 98 Oxygen Delivery Method Room Air Room Air 03/24/23 13:01 03/24/23 13:30 Temperature Pulse Rate 97 H 82 Respiratory Rate 16 Blood Pressure Pulse Oximetry 98 99 Oxygen Delivery Method MDM - URI/Sore Throat <Chris Diaz, DEENA - Last Filed: 03/24/23 13:57> Lab Data 03/24/23 12:15 03/24/23 12:15 Labs: Lab Results 03/24/23 03/24/23 03/24/23 Range/Units 11:55 12:15 12:15 WBC 7.5 (4.5-11.0) X10^3/uL RBC 4.51 (4.0-5.2) X10^6/uL Hgb 13.9 (12.0-16.0) g/dL Hct 39.7 (36-46) % MCV 88.0 (80-100) fL MCH 30.8 (26-34) PG MCHC 35.0 (30-36) % RDW 12.9 (11.6-14.8) % Plt Count 216 (150-400) X10^3/uL Neut % (Auto) 55.3 (50-75) % Lymph % (Auto) 34.0 (25-40) % [place] % (Auto) 6.7 (3-14) % Eos % (Auto) 3.6 (2-4) % Baso % (Auto) 0.4 (0-2) % Neut # (Auto) 4100 (2700-9611) /uL Lymph # (Auto) 2600 (4734-3561) /uL [place] # (Auto) 500 (0-900) /uL Eos # (Auto) 300 (0-450) /uL Baso # (Auto) 0 (0-100) /uL PT 12.7 (10.1-12.7) SECONDS INR 1.1 (0.9-1.3) APTT 30 (26-36) SECONDS Sodium (137-145) mmol/L Potassium (3.4-5.1) mmol/L Chloride (98-107) mmol/L Carbon Dioxide (22-32) mmol/L BUN (7-17) mg/dL Creatinine (0.52-1.04) mg/dL Estimated GFR (>60) mL/min BUN/Creatinine Ratio (6-22) Glucose (70-100) mg/dL Lactate (0.7-2.1) mmol/L Calcium (8.4-10.2) mg/dL Total Bilirubin (0.2-1.3) mg/dL AST (14-36) IU/L ALT (<35) IU/L Alkaline Phosphatase (38-126) U/L Total Protein (6.3-8.2) g/dL Albumin (3.5-5.0) g/dL Globulin (1.7-4.1) g/dL Albumin/Globulin Ratio (1.0-2.8) Lipase (23-300) U/L Procalcitonin (<0.5) ng/mL Urine RBC 1-5/hpf (0-5/HPF) Urine WBC 1-5/hpf (0-5/HPF) Ur Squamous Epith Cells 0-1 /hpf (0-5/HPF) Urine Bacteria Many (>30) H (None) Ur Culture Indicated? Specimen cultured SARS-CoV-2 (PCR) (Negative) Influenza A (RT-PCR) (NEGATIVE) Influenza B (RT-PCR) (NEGATIVE) RSV (PCR) (Negative) 03/24/23 03/24/23 03/24/23 Range/Units 12:15 12:15 12:30 WBC (4.5-11.0) X10^3/uL RBC (4.0-5.2) X10^6/uL Hgb (12.0-16.0) g/dL Hct (36-46) % MCV (80-100) fL MCH (26-34) PG MCHC (30-36) % RDW (11.6-14.8) % Plt Count (150-400) X10^3/uL Neut % (Auto) (50-75) % Lymph % (Auto) (25-40) % [place] % (Auto) (3-14) % Eos % (Auto) (2-4) % Baso % (Auto) (0-2) % Neut # (Auto) (4468-8190) /uL Lymph # (Auto) (1134-8726) /uL [place] # (Auto) (0-900) /uL Eos # (Auto) (0-450) /uL Baso # (Auto) (0-100) /uL PT (10.1-12.7) SECONDS INR (0.9-1.3) APTT (26-36) SECONDS Sodium 136 L (137-145) mmol/L Potassium 4.3 (3.4-5.1) mmol/L Chloride 105 (98-107) mmol/L Carbon Dioxide 24 (22-32) mmol/L BUN 10 (7-17) mg/dL Creatinine 0.74 (0.52-1.04) mg/dL Estimated GFR > 60 (>60) mL/min BUN/Creatinine Ratio 13.5 (6-22) Glucose 86 (70-100) mg/dL Lactate 1.0 (0.7-2.1) mmol/L Calcium 9.2 (8.4-10.2) mg/dL Total Bilirubin 0.5 (0.2-1.3) mg/dL AST 19 (14-36) IU/L ALT 19 (<35) IU/L Alkaline Phosphatase 72 (38-126) U/L Total Protein 7.7 (6.3-8.2) g/dL Albumin 4.3 (3.5-5.0) g/dL Globulin 3.4 (1.7-4.1) g/dL Albumin/Globulin Ratio 1.3 (1.0-2.8) Lipase 48 (23-300) U/L Procalcitonin 0.07 (<0.5) ng/mL Urine RBC (0-5/HPF) Urine WBC (0-5/HPF) Ur Squamous Epith Cells (0-5/HPF) Urine Bacteria (None) Ur Culture Indicated? SARS-CoV-2 (PCR) Negative (Negative) Influenza A (RT-PCR) Flu a negative (NEGATIVE) Influenza B (RT-PCR) Flu b negative (NEGATIVE) RSV (PCR) Negative (Negative) Urine Dip Bedside Urine Glucose Negative Bedside Urine Bilirubin - Negative Bedside Urine Ketone - Negative Urine Specific [place] 1.015 Bedside Urine Occult Blood +/- Bedside Urine pH 5.5 Bedside Urine Protein - Negative Bedside Urine Urobilinogen - Negative Bedside Urine Nitrite - Negative Bedside Urine Leukocytes - Negative Esterase MDM Narrative Medical decision making narrative: 42-year-old female with no reported past medical history presents to the ED with URI symptoms and chest congestion for 10 days. Concern for URI versus acute bronchitis versus pneumonia versus other. Obtained chest x-ray, labs, res piratory swab. Patient is negative for COVID and influenza. Labs and chest x- ray without acute findings. Patient's symptoms likely due to acute bronchitis. Will prescribe codeine with guaifenesin for the cough. Recommend follow-up with PCP as soon as possible. ED return precautions were discussed with patient. Patient verbalized understanding. Medical records reviewed: Yes <Deborah House DO - Last Filed: 03/26/23 01:16> Lab Data Labs: Lab Results 03/24/23 03/24/23 03/24/23 Range/Units 11:55 12:15 12:15 WBC 7.5 (4.5-11.0) X10^3/uL RBC 4.51 (4.0-5.2) X10^6/uL Hgb 13.9 (12.0-16.0) g/dL Hct 39.7 (36-46) % MCV 88.0 (80-100) fL MCH 30.8 (26-34) PG MCHC 35.0 (30-36) % RDW 12.9 (11.6-14.8) % Plt Count 216 (150-400) X10^3/uL Neut % (Auto) 55.3 (50-75) % Lymph % (Auto) 34.0 (25-40) % [place] % (Auto) 6.7 (3-14) % Eos % (Auto) 3.6 (2-4) % Baso % (Auto) 0.4 (0-2) % Neut # (Auto) 4100 (6781-1447) /uL Lymph # (Auto) 2600 (8568-4302) /uL [place] # (Auto) 500 (0-900) /uL Eos # (Auto) 300 (0-450) /uL Baso # (Auto) 0 (0-100) /uL PT 12.7 (10.1-12.7) SECONDS INR 1.1 (0.9-1.3) APTT 30 (26-36) SECONDS Sodium (137-145) mmol/L Potassium (3.4-5.1) mmol/L Chloride (98-107) mmol/L Carbon Dioxide (22-32) mmol/L BUN (7-17) mg/dL Creatinine (0.52-1.04) mg/dL Estimated GFR (>60) mL/min BUN/Creatinine Ratio (6-22) Glucose (70-100) mg/dL Lactate (0.7-2.1) mmol/L Calcium (8.4-10.2) mg/dL Total Bilirubin (0.2-1.3) mg/dL AST (14-36) IU/L ALT (<35) IU/L Alkaline Phosphatase (38-126) U/L Total Protein (6.3-8.2) g/dL Albumin (3.5-5.0) g/dL Globulin (1.7-4.1) g/dL Albumin/Globulin Ratio (1.0-2.8) Lipase (23-300) U/L Procalcitonin (<0.5) ng/mL Urine RBC 1-5/hpf (0-5/HPF) Urine WBC 1-5/hpf (0-5/HPF) Ur Squamous Epith Cells 0-1 /hpf (0-5/HPF) Urine Bacteria Many (>30) H (None) Ur Culture Indicated? Specimen cultured SARS-CoV-2 (PCR) (Negative) Influenza A (RT-PCR) (NEGATIVE) Influenza B (RT-PCR) (NEGATIVE) RSV (PCR) (Negative) 03/24/23 03/24/23 03/24/23 Range/Units 12:15 12:15 12:30 WBC (4.5-11.0) X10^3/uL RBC (4.0-5.2) X10^6/uL Hgb (12.0-16.0) g/dL Hct (36-46) % MCV (80-100) fL MCH (26-34) PG MCHC (30-36) % RDW (11.6-14.8) % Plt Count (150-400) X10^3/uL Neut % (Auto) (50-75) % Lymph % (Auto) (25-40) % [place] % (Auto) (3-14) % Eos % (Auto) (2-4) % Baso % (Auto) (0-2) % Neut # (Auto) (8223-9251) /uL Lymph # (Auto) (0747-5482) /uL [place] # (Auto) (0-900) /uL Eos # (Auto) (0-450) /uL Baso # (Auto) (0-100) /uL PT (10.1-12.7) SECONDS INR (0.9-1.3) APTT (26-36) SECONDS Sodium 136 L (137-145) mmol/L Potassium 4.3 (3.4-5.1) mmol/L Chloride 105 (98-107) mmol/L Carbon Dioxide 24 (22-32) mmol/L BUN 10 (7-17) mg/dL Creatinine 0.74 (0.52-1.04) mg/dL Estimated GFR > 60 (>60) mL/min BUN/Creatinine Ratio 13.5 (6-22) Glucose 86 (70-100) mg/dL Lactate 1.0 (0.7-2.1) mmol/L Calcium 9.2 (8.4-10.2) mg/dL Total Bilirubin 0.5 (0.2-1.3) mg/dL AST 19 (14-36) IU/L ALT 19 (<35) IU/L Alkaline Phosphatase 72 (38-126) U/L Total Protein 7.7 (6.3-8.2) g/dL Albumin 4.3 (3.5-5.0) g/dL Globulin 3.4 (1.7-4.1) g/dL Albumin/Globulin Ratio 1.3 (1.0-2.8) Lipase 48 (23-300) U/L Procalcitonin 0.07 (<0.5) ng/mL Urine RBC (0-5/HPF) Urine WBC (0-5/HPF) Ur Squamous Epith Cells (0-5/HPF) Urine Bacteria (None) Ur Culture Indicated? SARS-CoV-2 (PCR) Negative (Negative) Influenza A (RT-PCR) Flu a negative (NEGATIVE) Influenza B (RT-PCR) Flu b negative (NEGATIVE) RSV (PCR) Negative (Negative) Urine Dip Bedside Urine Glucose Negative Bedside Urine Bilirubin - Negative Bedside Urine Ketone - Negative Urine Specific [place] 1.015 Bedside Urine Occult Blood +/- Bedside Urine pH 5.5 Bedside Urine Protein - Negative Bedside Urine Urobilinogen - Negative Bedside Urine Nitrite - Negative Bedside Urine Leukocytes - Negative Esterase ECG Data Interpretation: Harsh-sinus rhythm rate 95 WV interval 136 QRS [address] changes or T- wave inversions Discharge Plan Departure Patient Disposition: Home Clinical Impression: Bronchitis Instructions: DI for Acute Bronchitis Activity Restrictions/Additional Instructions: You were evaluated in the ED today for some chest congestion and cough. Your labs, chest x-ray were normal. It is likely that you have some residual symptoms of the upper respiratory infection that you suffered over the last 10 days. You are being prescribed codeine-guaifenesin for your cough. This medicine will make you sleepy, therefore do not when operating machinery, driving, swimming. Return to the ED if you have worsening symptoms, shortness of breath, chest pain. Please follow-up with your PCP as soon as possible. Prescriptions: New codeine-guaifenesin 10-100 mg/5 mL liquid 5 ml PO Q6H PRN (Reason: cough) Qty: 120 0RF Referrals: Nico Fabian DO [Primary Care Provider] - Stand Alone Forms: Patient Portal/API <Deborah House DO - Last Filed: 03/26/23 01:16> Cosign ED Attending Edvinature Attestation: I was immediately available in the department for consultation. Documentation has been reviewed.
[2023-03-24 13:58] VITALS: BP 125/64; PULSE 80; RESP 16; O2SAT 98
== END 2023-03-24 14:02 | disposition home or self-care (01) ==
PROVIDERS: Emergency Medicine; Emergency Provider Student in an Organized Health Care Education/Training Program; PCP Student in an Organized Health Care Education/Training Program
DX: J20.9 Acute bronchitis, unspecified (principal); Z20.822 Contact with and (suspected) exposure to COVID-19
CPT/HCPCS: 0241U; 36415; 71045; 80053; 81003; 81015; 83605; 83690; 84145; 85025; 85610; 85730; 87040; 87086; 93005; 99284

== ENCOUNTER 2023-03-30 07:39 | Emergency (ER) | payer OTHER, SELFPAY ==
[2023-03-30 07:55] VITALS: BP 131/68; PULSE 105; RESP 16; TEMP 36.9; O2SAT 96; BMI 30.5
[2023-03-30 08:00] VITALS: BMI 30.5
--- NOTE | 2023-03-30 08:08 | ED.GENADULT ---
HPI - General Adult General Chief complaint: Abdominal Pain Stated complaint: bladder or overaries Time Seen by Provider: 03/30/23 08:01 Source: patient Mode of arrival: Ambulatory History of Present Illness HPI narrative: Patient is a 42-year-old female who is here for evaluation of 3 days of lower abdominal/suprapubic pelvic discomfort. It has been consistent. She is not having any urinary symptoms. No change in bowel habits. She has had a hysterectomy. She states she has not had her ovaries removed although depending on when of specific study was done she stated that normally they can only see either the left or the right ovary but normal in the not both. She is not had any fevers. No nausea or vomiting. Pain does not change with urinary or bowel movements. No other prior abdominal surgeries besides a hysterectomy. Related Data Previous Rx's Medication Instructions Recorded codeine 10 mg-guaifenesin 100 mg/5 5 ml PO Q6H PRN cough #120 mL 03/24/23 mL oral liquid Allergies Allergy/AdvReac Type Severity Reaction Status Date / Time No Known Drug Allergies Allergy Verified 03/30/23 07:59 Review of Systems Review of Systems ROS Unobtainable: All systems reviewed & are unremarkable except as noted in HPI and below Patient History Medical History Kidney stone Patient denies significant medical history Surgical History H/O vaginal hysterectomy Social History marital status: Smoking Status: Never smoker Smoking Status: Never smoker alcohol intake frequency: holidays/special occasions only Substance Use Type: does not use Exam Initial Vital Signs Initial Vital Signs: Vital Signs Temperature 98.4 F 03/30/23 07:55 Pulse Rate 105 H 03/30/23 07:55 Respiratory Rate 16 03/30/23 07:55 Blood Pressure 131/68 03/30/23 07:55 Pulse Oximetry 96 03/30/23 07:55 Oxygen Delivery Method Room Air 03/30/23 07:55 Const General: cooperative and No ill appearing HENMT Head: normal to inspection and normocephalic Resp Effort & Inspection: normal respiratory effort Auscultation: clear to auscultation bilaterally Cardio Rate: regular rate Rhythm: regular rhythm GI Inspection: normal to inspection and non-distended Palpation: soft, No firm, No guarding and tender (Suprapubic) Skin General: no rashes or lesions noted Neuro General: patient alert, patient awake and moves all extremities Speech: speech normal Extrem General: normal to inspection and capillary refill normal Course Orders Ordered: ED Orders 03/30/23 08:20 Ictotest Urine Stat 03/30/23 08:40 Complete Blood Count AUTO DIFF Stat Comprehensive Metabolic Panel Stat Lipase Stat 03/30/23 09:00 CT abdomen pelvis w con Stat Ketorolac Tromethamine (Ketorolac 30 Mg/Ml Vial) 30 mg IV NOW ONE Stop: 03/30/23 09:58 Ondansetron HCl (Ondansetron 4 Mg Odt) 4 mg PO NOW PRN PRN Reason: Nausea And Vomiting Ondansetron HCl (Ondansetron 4 Mg/2 Ml Inj) 4 mg IV NOW PRN PRN Reason: Nausea And Vomiting Vital Signs Vital signs: Vital Signs - 8 hr 03/30/23 07:55 03/30/23 08:49 03/30/23 09:00 Temperature 98.4 F Pulse Rate 105 H 82 Respiratory Rate 16 Blood Pressure 131/68 114/55 L Pulse Oximetry 96 94 Oxygen Delivery Method Room Air 03/30/23 09:00 Temperature Pulse Rate 83 Respiratory Rate Blood Pressure Pulse Oximetry 94 Oxygen Delivery Method Medical Decision Making Lab Data Lab results reviewed: Yes I reviewed the patient's lab results. 03/30/23 08:40 03/30/23 08:40 Labs: Lab Results 03/30/23 03/30/23 03/30/23 Range/Units 08:20 08:40 08:40 WBC 10.3 (4.5-11.0) X10^3/uL RBC 4.53 (4.0-5.2) X10^6/uL Hgb 14.3 (12.0-16.0) g/dL Hct 40.2 (36-46) % MCV 88.8 (80-100) fL MCH 31.5 (26-34) PG MCHC 35.4 (30-36) % RDW 12.8 (11.6-14.8) % Plt Count 235 (150-400) X10^3/uL Neut % (Auto) 68.1 (50-75) % Lymph % (Auto) 25.0 (25-40) % Lee % (Auto) 4.4 (3-14) % Eos % (Auto) 2.2 (2-4) % Baso % (Auto) 0.3 (0-2) % Neut # (Auto) 7000 (7757-8530) /uL Lymph # (Auto) 2600 (5931-1394) /uL Lee # (Auto) 400 (0-900) /uL Eos # (Auto) 200 (0-450) /uL Baso # (Auto) 0 (0-100) /uL Sodium 135 L (137-145) mmol/L Potassium 3.9 (3.4-5.1) mmol/L Chloride 104 (98-107) mmol/L Carbon Dioxide 24 (22-32) mmol/L BUN 12 (7-17) mg/dL Creatinine 0.85 (0.52-1.04) mg/dL Estimated GFR > 60 (>60) mL/min BUN/Creatinine Ratio 14.1 (6-22) Glucose 107 H (70-100) mg/dL Calcium 9.2 (8.4-10.2) mg/dL Total Bilirubin 0.7 (0.2-1.3) mg/dL AST 22 (14-36) IU/L ALT 22 (<35) IU/L Alkaline Phosphatase 88 (38-126) U/L Total Protein 7.6 (6.3-8.2) g/dL Albumin 4.3 (3.5-5.0) g/dL Globulin 3.3 (1.7-4.1) g/dL Albumin/Globulin Ratio 1.3 (1.0-2.8) Lipase 37 (23-300) U/L Ur Bilirubin Confirm Negative (Negative) Point of Care Testing Test Results Negative Urine Dip Bedside Urine Glucose Negative Bedside Urine Bilirubin + 1 Bedside Urine Ketone - Negative Urine Specific [place] 1.025 Bedside Urine Occult Blood - Negative Bedside Urine pH 6.0 Bedside Urine Protein - Negative Bedside Urine Urobilinogen - Negative Bedside Urine Nitrite - Negative Bedside Urine Leukocytes - Negative Esterase Point of care testing: Point of Care Testing Test Results Negative Urine Dip Bedside Urine Glucose Negative Bedside Urine Bilirubin + 1 Bedside Urine Ketone - Negative Urine Specific [place] 1.025 Bedside Urine Occult Blood - Negative Bedside Urine pH 6.0 Bedside Urine Protein - Negative Bedside Urine Urobilinogen - Negative Bedside Urine Nitrite - Negative Bedside Urine Leukocytes - Negative Esterase Imaging Data CT scan - abdomen/pelvis: Radiologist's Impression: PROCEDURE:? CT ABDOMEN PELVIS W CON ? INDICATIONS:? Suprapubic abdominal pain ? TECHNIQUE:? After the administration of intravenous contrast, axial sections acquired from the lung bases to the pubic symphysis.? Coronal and sagittal reformats were performed.? For radiation dose reduction, the following was used:? automated exposure control, adjustment of mA and/or kV according to patient size.? ? COMPARISON:? [facility], MR, MR PELVIS WO/W CON, 11/13/2022, 7:54. ? FINDINGS:? Image quality:? Excellent.? ? Lung bases:? Unremarkable. Heart:? No significant findings. ? ABDOMEN: Liver:? Unremarkable.? ? Gallbladder:? Unremarkable.? ? Biliary ducts:? Unremarkable.? ? Pancreas:? Unremarkable.? ? Spleen:? Unremarkable.? ? Adrenal Glands:? Unremarkable.? ? Kidneys and Ureters:? Unremarkable.? ? ? Stomach and Bowel:? Stomach, small bowel loops, and colon are unremarkable.? Peritoneum:? No abnormal intraperitoneal fluid.? No free air.? ? Ventral Wall: ? No hernias.? Abdominal Nodes:? No retroperitoneal or mesenteric adenopathy by size criteria.? Vessels:? Aorta and inferior vena cava are normal in size.? ? PELVIS: Pelvic Organs:? Remote hysterectomy.? There is a new cystic lesion of the left adnexa measuring 4.0 cm.? Interestingly, no left ovary was identified on the relatively recent pelvis MRI .? ? Bladder:? Unremarkable.? ? Pelvic Nodes: No enlarged lymph nodes.? Miscellaneous: No hernias are seen. ? ? ? Bones:? Unremarkable.? IMPRESSION:? ? 1. No acute abdominal process. ? 2. Remote hysterectomy. ? 3. Probable left ovarian cyst.? A cystic structure has developed in the left adnexa measuring 4 cm. [facility] Narrative Medical decision making narrative: She has had a hysterectomy. Her urinalysis today does not show any signs of a urinary tract infection. CT scan shows left-sided ovarian cyst but no other acute pathology. No signs of diverticulitis, appendicitis, bowel obstruction, pyelonephritis or renal colic. I do have low suspicion that this is ovarian torsion based on her presentation today. She is not on control for hormone regulation. She does frequently get ovarian cyst. We did discuss her CT scan today. Will have her take anti-inflammatories. Will have her contact her primary doctor for follow-up. She was given return precautions. Discharge Plan Departure Patient Disposition: Home Clinical Impression: Ovarian cyst, Abdominal pain Instructions: Ovarian Cyst, DI for Abdominal Pain-Adult Activity Restrictions/Additional Instructions: I do recommend that you continue any medications as directed. Contact your primary doctor for a follow-up. I also recommend Tylenol and or ibuprofen for discomfort. Return to the emergency department for new or worsening symptoms. Prescriptions: No Action codeine-guaifenesin 10-100 mg/5 mL liquid 5 ml PO Q6H PRN (Reason: cough) Qty: 120 0RF Referrals: Nico Fabian DO [Primary Care Provider] - Stand Alone Forms: Patient Portal/API
[2023-03-30 08:30] LABS: Ictotest Urine Negative (Negative)
[2023-03-30 08:47] LABS: Add Manual Diff / Slide Review NO; Basophils Absolute Auto 0 /uL (0-100); Basophils Percent Auto 0.3 % (0-2); Eosinophils Absolute Auto 200 /uL (0-450); Eosinophils Percent Auto 2.2 % (2-4); Hematocrit 40.2 % (36-46); Hemoglobin 14.3 g/dL (12.0-16.0); Lymphocytes Absolute Auto 2600 /uL (1100-4500); Mean Corpuscular HGB Conc 35.4 % (30-36); Mean Corpuscular Hemoglobin 31.5 PG (26-34); Mean Corpuscular Volume 88.8 fL (80-100); Monocytes Absolute Auto 400 /uL (0-900); Monocytes Percent Auto 4.4 % (3-14); Neutrophils Absolute Auto 7000 /uL (1500-7000); Neutrophils Percent Auto 68.1 % (50-75); Platelet Count 235 X10^3/uL (150-400); Red Blood Cell Count 4.53 X10^6/uL (4.0-5.2); Red Cell Distribution Width 12.8 % (11.6-14.8); White Blood Cell Count 10.3 X10^3/uL (4.5-11.0)
[2023-03-30 08:49] VITALS: PULSE 82; O2SAT 94
[2023-03-30 09:00] VITALS: BP 114/55; PULSE 83; O2SAT 94
--- NOTE | 2023-03-30 09:00 | DI.CT.S_ITS ---
PROCEDURE: CT ABDOMEN PELVIS W CON INDICATIONS: Suprapubic abdominal pain TECHNIQUE: After the administration of intravenous contrast, axial sections acquired from the lung bases to the pubic symphysis. Coronal and sagittal reformats were performed. For radiation dose reduction, the following was used: automated exposure control, adjustment of mA and/or kV according to patient size. COMPARISON: [facility], MR, MR PELVIS WO/W CON, 11/13/2022, 7:54. FINDINGS: Image quality: Excellent. Lung bases: Unremarkable. Heart: No significant findings. ABDOMEN: Liver: Unremarkable. Gallbladder: Unremarkable. Biliary ducts: Unremarkable. Pancreas: Unremarkable. Spleen: Unremarkable. Adrenal Glands: Unremarkable. Kidneys and Ureters: Unremarkable. Stomach and Bowel: Stomach, small bowel loops, and colon are unremarkable. Peritoneum: No abnormal intraperitoneal fluid. No free air. Ventral Wall: No hernias. Abdominal Nodes: No retroperitoneal or mesenteric adenopathy by size criteria. Vessels: Aorta and inferior vena cava are normal in size. PELVIS: Pelvic Organs: Remote hysterectomy. There is a new cystic lesion of the left adnexa measuring 4.0 cm. Interestingly, no left ovary was identified on the relatively recent pelvis MRI . Bladder: Unremarkable. Pelvic Nodes: No enlarged lymph nodes. Miscellaneous: No hernias are seen. Bones: Unremarkable. IMPRESSION: 1. No acute abdominal process. 2. Remote hysterectomy. 3. Probable left ovarian cyst. A cystic structure has developed in the left adnexa measuring 4 cm. Dictated by: Srinivas Theodore M.D. on 03/30/2023 at 9:36 Approved by: Srinivas Theodore M.D. on 03/30/2023 at 9:42
[2023-03-30 09:05] LABS: Alanine Aminotransferase 22 IU/L (<35); Albumin 4.3 g/dL (3.5-5.0); Albumin Globulin Ratio 1.3 (1.0-2.8); Alkaline Phosphatase 88 U/L (38-126); Aspartate Aminotransferase 22 IU/L (14-36); BUN Creatinine Ratio 14.1 (6-22); Bilirubin Total 0.7 mg/dL (0.2-1.3); Blood Urea Nitrogen 12 mg/dL (7-17); Calcium 9.2 mg/dL (8.4-10.2); Carbon Dioxide 24 mmol/L (22-32); Chloride 104 mmol/L (98-107); Estimated Glomerular Filt Rate > 60 mL/min (>60); Globulin 3.3 g/dL (1.7-4.1); Glucose 107 mg/dL (70-100); HEMOLYSIS 33 (0-50); Lipase 37 U/L (23-300); Potassium 3.9 mmol/L (3.4-5.1); Sodium 135 mmol/L (137-145); Total Protein 7.6 g/dL (6.3-8.2)
[2023-03-30 09:26] VITALS: BP 121/61; PULSE 86; O2SAT 97
[2023-03-30 09:30] VITALS: BP 114/61; PULSE 79; RESP 13; O2SAT 96
[2023-03-30 10:00] VITALS: BP 117/66; PULSE 80; O2SAT 95
[2023-03-30] MEDS: KETOROLAC 30 MG/ML VIAL IV (10:05)
== END 2023-03-30 10:29 | disposition home or self-care (01) ==
PROVIDERS: Emergency Provider Emergency Medicine; PCP Student in an Organized Health Care Education/Training Program
DX: N83.202 Unspecified ovarian cyst, left side (principal); R10.30 Lower abdominal pain, unspecified
CPT/HCPCS: 36415; 74177; 80053; 81003; 81025; 83690; 85025; 96374; 99284; J1885; Q9967

== ENCOUNTER → 2023-06-06 15:50 | Outpatient (CLI) | payer OTHER, SELFPAY | PROVIDERS: PCP Student in an Organized Health Care Education/Training Program; Visit Provider Nurse Practitioner Family | DX: J02.9 Acute pharyngitis, unspecified (principal) | CPT/HCPCS: 87070 ==

== ENCOUNTER → 2023-11-11 07:40 | Outpatient (CLI) | payer OTHER, SELFPAY ==
--- NOTE | 2023-11-11 07:41 | DI.MRI.S_ITS ---
PROCEDURE: MR SHOULDER LT WO CON INDICATIONS: Pain in left shoulder TECHNIQUE: Noncontrast oblique coronal T2 fast spin echo with fat saturation, oblique sagittal T1 spin echo and T2 fast spin echo with fat saturation, axial T1 spin echo and T2 fast spin echo with fat saturation through the shoulder. COMPARISON: None. FINDINGS: Image quality: Excellent. Rotator cuff: Low-grade bursal surface partial-thickness tear involving distal supraspinatus at its insertion on the humeral head is seen extending to musculotendinous junction. Distal infraspinatus and subscapularis tendinosis is also seen. No full-thickness rotator cuff tendon rupture. Sagittal images demonstrate no significant rotator cuff muscle atrophy. Bones and bursae: No bone marrow contusions or fractures. Moderate acromioclavicular joint osteoarthritic changes are seen with joint space narrowing and downward osteophyte formation depressing the musculotendinous junction of supraspinatus. Small amount of subacromial subdeltoid bursal fluid is seen. No loose bodies. Capsule and soft tissues: Labrum is grossly intact. The long head of the biceps tendon demonstrates normal location and morphology. The rotator interval appears normal, without fibrosis. The coracohumeral ligament is normal in thickness. IMPRESSION: 1. Low-grade bursal surface partial-thickness tear involving distal supraspinatus extending to musculotendinous junction. Distal infraspinatus and subscapularis tendinosis. No full-thickness rotator cuff tendon rupture. 2. Moderate acromioclavicular joint osteoarthritis. No fracture or dislocation. Small amount of subacromial subdeltoid bursal fluid, no loose bodies. 3. No evidence of focal labral tear. Dictated by: Surya Graves M.D. on 11/11/2023 at 9:34 Approved by: Surya Graves M.D. on 11/11/2023 at 9:36
== END ==
LOC: MRI 07:41
PROVIDERS: Referring Provider Nurse Practitioner Family; Visit Provider Nurse Practitioner Family
DX: M25.512 Pain in left shoulder (principal); M75.112 Incomplete rotator cuff tear or rupture of left shoulder, not specified as traumatic; M19.012 Primary osteoarthritis, left shoulder
CPT/HCPCS: 73221

== ENCOUNTER 2024-02-19 07:15 | Emergency (ER) | payer OTHER, SELFPAY ==
[2024-02-19] VITALS (9 sets, daily range): BP systolic 108–147; BP diastolic 62–77; PULSE 62–107; RESP 10–18; TEMP 36.8; O2SAT 93–98; BMI 31.7
--- NOTE | 2024-02-19 07:23 | DI.RAD.S_ITS ---
PROCEDURE: XR CHEST 1V INDICATIONS: chest pain TECHNIQUE: One view of the chest was acquired. COMPARISON: [facility], CR, XR CHEST 1V, 03/24/2023, 11:55. FINDINGS: Surgical changes and devices: None. Lungs and pleura: Lungs are clear. No pleural effusions or pneumothorax. Mediastinum: Mediastinal contours appear normal. Heart size is normal. Bones and chest wall: No suspicious bony lesions. Overlying soft tissues appear unremarkable. IMPRESSION: No acute cardiopulmonary abnormality is seen. Dictated by: Srinivas Theodore M.D. on 02/19/2024 at 8:11 Approved by: Srinivas Theodore M.D. on 02/19/2024 at 8:12
--- NOTE | 2024-02-19 07:28 | EKG_ITS ---
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
[2024-02-19] MEDS: ASPIRIN 81 MG CHEW TAB 324 MG PO (07:30)
--- NOTE | 2024-02-19 07:37 | ED_ITS ---
HPI - Chest Pain General Chief Complaint: Chest Pain Stated Complaint: chest & L arm pain Time Seen by Provider: 02/19/24 07:19 Source: patient Mode of arrival: Ambulatory Limitations: no limitations History of Present Illness HPI narrative: 43-year-old female with history of remote pulmonary embolus after section, no known coronary artery disease, chronic left shoulder pain, history of prior kidney stones, history of ovarian cysts, was awakened proximally 330 this morning tending to her child, and noticed that she was sore on the left lower rib area, not particularly worse with inspiration or change in position, not worse with left upper extremity movements, some radiation left lower chest discomfort to the left arm. She has a side sleeper. She is right-handed. No injury or trauma new activities. Has had recent air travel last week, but no leg pain or swelling, no arm pain or swelling. Related Data Home Medications Medication Instructions Recorded Confirmed rosuvastatin 10 mg tablet 10 mg PO ONCE PM 06/06/23 06/06/23 Previous Rx's Medication Instructions Recorded methocarbamol 500 mg tablet 500 mg PO TID 7 days #21 tabs 02/19/24 Allergies Allergy/AdvReac Type Severity Reaction Status Date / Time No Known Drug Allergies Allergy Verified 02/19/24 07:42 Review of Systems Review of Systems Narrative: see HPI Patient History Medical History Kidney stone Patient denies significant medical history Surgical History H/O vaginal hysterectomy Social History marital status: Smoking Status: Former smoker Smoking Status: Former smoker alcohol intake frequency: holidays/special occasions only Substance Use Type: does not use Exam Narrative Exam Narrative: GENERAL: Well-developed patient, in mild distress. HEAD: Atraumatic. Normocephalic. EYES: Pupils equal round and reactive. Extraocular motions intact. No scleral icterus. No injection or drainage. ENT: Nose without bleeding, purulent drainage. Throat without erythema, tonsillar hypertrophy or exudate. Airway patent. NECK: Trachea midline. Non tender CARDIOVASCULAR: Regular rate and rhythm without murmurs, gallops, or rubs. RESPIRATORY: Clear to auscultation. Breath sounds equal bilaterally. No wheezes, rales, or rhonchi. Tenderness left lower anterior chest, without crepitance, no redness/abrasion skin, no vesicles GASTROINTESTINAL: Abdomen soft, non-tender, nondistended. EXTREMITIES: No edema or joint tenderness. BACK: Nontender without deformity or crepitance. No flank tenderness. NEURO: AOx3. Nonfocal neurio exam SKIN: No rash or erythema of visible areas Initial Vital Signs Initial Vital Signs: Vital Signs Temperature 98.3 F 02/19/24 07:21 Pulse Rate 107 H 02/19/24 07:21 Respiratory Rate 16 02/19/24 07:21 Blood Pressure 141/77 H 02/19/24 07:21 Pulse Oximetry 97 02/19/24 07:21 Oxygen Delivery Method Room Air 02/19/24 07:21 Course Orders Ordered: Discontinued Medications Aspirin (Aspirin 81 Mg Chew Tab) 324 mg PO NOW ONE Stop: 02/19/24 07:24 Last Admin: 02/19/24 07:30 Dose: 324 mg Documented By: SILVA Sodium Chloride (Normal Saline 0.9%) 1,000 mls @ 500 mls/hr IV BOLUS ONE Stop: 02/19/24 10:22 Last Infusion: 02/19/24 10:36 Dose: Infused Documented By: Admin: 02/19/24 08:45 Dose: 500 mls/hr Documented By: SILVA Vital Signs Vital signs: Vital Signs - 8 hr 02/19/24 07:21 02/19/24 07:24 02/19/24 07:24 Temperature 98.3 F Pulse Rate 107 H 98 H Respiratory Rate 16 10 L Blood Pressure 141/77 H 138/75 Pulse Oximetry 97 97 Oxygen Delivery Method Room Air 02/19/24 07:30 02/19/24 07:30 02/19/24 08:00 Temperature Pulse Rate 91 H 68 Respiratory Rate 16 Blood Pressure 147/68 H Pulse Oximetry 94 93 Oxygen Delivery Method Room Air 02/19/24 08:00 02/19/24 08:30 02/19/24 08:30 Temperature Pulse Rate 64 Respiratory Rate 16 Blood Pressure 119/63 108/63 Pulse Oximetry 93 Oxygen Delivery Method Room Air 02/19/24 09:08 02/19/24 09:08 02/19/24 09:30 Temperature Pulse Rate 64 63 Respiratory Rate 13 Blood Pressure 112/62 Pulse Oximetry 97 97 Oxygen Delivery Method Room Air 02/19/24 09:30 02/19/24 10:00 02/19/24 10:00 Temperature Pulse Rate 62 Respiratory Rate 18 Blood Pressure 115/63 115/66 Pulse Oximetry 97 Oxygen Delivery Method Room Air MDM - Chest Pain Medical Records Data Attestation: I reviewed the patient's medical records. Lab Data Attestation: I reviewed the patient's lab results. 02/19/24 07:20 02/19/24 07:20 Labs: Lab Results 02/19/24 02/19/24 Range/Units 07:20 09:47 WBC 9.3 (4.5-11.0) X10^3/uL RBC 4.55 (4.0-5.2) X10^6/uL Hgb 14.2 (12.0-16.0) g/dL Hct 40.5 (36-46) % MCV 88.9 (80-100) fL MCH 31.2 (26-34) PG MCHC 35.2 (30-36) % RDW 12.9 (11.6-14.8) % Plt Count 211 (150-400) X10^3/uL Neut % (Auto) 60.6 (50-75) % Lymph % (Auto) 33.1 (25-40) % [place] % (Auto) 4.8 (3-14) % Eos % (Auto) 1.3 L (2-4) % Baso % (Auto) 0.2 (0-2) % Neut # (Auto) 5700 (2550-3541) /uL Lymph # (Auto) 3100 (7641-4650) /uL [place] # (Auto) 400 (0-900) /uL Eos # (Auto) 100 (0-450) /uL Baso # (Auto) 0 (0-100) /uL PT 11.6 (9.4-12.5) SECONDS INR 1.0 (0.9-1.3) APTT 35 (25.1-36.5) SECONDS Sodium 138 (137-145) mmol/L Potassium 3.6 (3.4-5.1) mmol/L Chloride 106 (98-107) mmol/L Carbon Dioxide 24 (22-32) mmol/L BUN 10 (7-17) mg/dL Creatinine 0.88 (0.52-1.04) mg/dL Estimated GFR > 60 (>60) mL/min BUN/Creatinine Ratio 11.4 (6-22) Glucose 111 H (70-100) mg/dL Calcium 8.9 (8.4-10.2) mg/dL Magnesium 2.2 (1.6-2.3) mg/dL Total Bilirubin 0.6 (0.2-1.3) mg/dL AST 22 (14-36) IU/L ALT 22 (<35) IU/L Alkaline Phosphatase 75 (38-126) U/L Total Creatine Kinase 73 (30-135) U/L Troponin I < 0.012 < 0.012 (0.01-0.034) ng/mL NT-Pro-B Natriuret Pep 124 (<125) pg/mL Total Protein 7.2 (6.3-8.2) g/dL Albumin 4.3 (3.5-5.0) g/dL Globulin 2.9 (1.7-4.1) g/dL Albumin/Globulin Ratio 1.5 (1.0-2.8) Lipase 38 (23-300) U/L HCG, Quant < 2.39 mIU/mL Imaging Data Chest x-ray: Radiologist's Impression: Close Chest X-Ray (Signed) Srinivas Theodore - 02/19/24 Launch?[place] [address] XRay Report Signed Patient: Lexii Arboleda MR#: [id number] : 1980 Acct:[id number] Age/Sex: 43 / F Date of Service: 02/19/24 Loc: ED Accession Number: [id number] Procedure: XR chest 1V Ordering Provider: Lester Flores MD PROCEDURE: XR CHEST 1V INDICATIONS: chest pain TECHNIQUE: One view of the chest was acquired. COMPARISON: [facility], , XR CHEST 1V, 03/24/2023, 11:55. FINDINGS: Surgical changes and devices: None. Lungs and pleura: Lungs are clear. No pleural effusions or pneumothorax. Mediastinum: Mediastinal contours appear normal. Heart size is normal. Bones and chest wall: No suspicious bony lesions. Overlying soft tissues appear unremarkable. IMPRESSION: No acute cardiopulmonary abnormality is seen. Dictated by: Srinivas Theodore M.D. on 02/19/2024 at 8:11 Approved by: Srinivas Theodore M.D. on 02/19/2024 at 8:12 ECG Data Attestation: I personally reviewed and interpreted this ECG as follows: Interpretation: Normal sinus rhythm with rate 86, no obvious ST segment elevation or depression changes. WI 128, QRS 80, QTC 452. MDM Narrative Medical decision making narrative: 43-year-old female with no known coronary artery disease, history of remote provoked post pulmonary embolus, with left lateral lower chest atraumtic discomfort since 0330 this morning. Prior kidney stones, prior ovarian cysts, prior left shoulder musculoskeletal problems noted. Recent travel noted. DDx consider recurrence pulmonary embolus, occult pneumonia, chest wall discomfort, pleural effusion, pneumothorax, ACS, referred pain from UTI/pyelo, ureteral stone, ovarian cyst/rupture/torsion, other. She did take aspirin here, declines IV/PO pain analgesics at this time. Screening EKG unremarkable. Labs pending, chest x-ray pending. Chest x-ray negative. Troponin negative. Prior hysterectomy, no hCG ordered. We discussed advanced imaging, her history of pulmonary embolus, recent travel, unexplained symptoms so far, she would prefer advanced imaging. She also has history of kidney stone, also prior ovarian cyst. CT angiogram chest abdomen and pelvis requested. Patient agreeable. Still declines pain meds CT angiogram chest abdomen and pelvis showed no acute cardiopulmonary process, right-sided sided adnexal cystic structure, no left adnexal cystic structure, no flu fluid, no acute abdominopelvic process. See Radiology report. We will repeat interval troponin. Repeat troponin also negative, unmeasurable. Patient given copy of CT angiogram report, with discussion, no acute findings obvious. Right-sided adnexal cystic structure noted, not on side of her symptoms, status post hysterectomy, we discussed pelvic imaging, she declines this for now. Consider musculoskeletal cause, trial of [id number] ibuprofen/Tylenol. We discussed muscle relaxant methocarbamol to try if she desires, prescription sent to her pharmacy. Further follow up and evaluation as an outpatient for now. Discharged stable, improved Critical Care Time Critical Care Time Total Critical Care Time: 31 Attestation: The high probability of a clinically significant, sudden or life threatening deterioration of the [cardiopulmonary, cardiovascular, abdominopelvic, genitourinary, gynecologic] system(s) required my full and direct attention, intervention and personal management. The aggregate critical care time was [31] minutes. This time is in addition to time spent performing reported procedures but includes the following: [x] Data Review and interpretation [x] Patient assessment and monitoring of vital signs [x] Documentation [x] Medication orders and management Discharge Plan Departure Patient Disposition: Home Clinical Impression: Chest pain, Ovarian cyst, right Instructions: DI for Atypical Chest Pain Activity Restrictions/Additional Instructions: 43-year-old female with left-sided atraumatic chest pain of unclear cause. No fever, no oxygen requirement, lungs clear, mild chest wall area discomfort without obvious traumatic changes. History of prior pulmonary embolus noted, but this was provoked in context of recent surgery at that time. Recent travel noted. Normal oxygenation, no respiratory distress on exam, heart rate not persistently increased. History of prior ovarian cysts. History of renal stones. Prior hysterectomy. We did discussed advanced imaging when chest x-ray did not show obvious underlying cause of symptoms. CT angiogram of the chest abdomen and pelvis was therefore performed, no acute changes were noted. There was incidental finding of right-sided adnexal area cyst small diameter, no free fluid in the pelvis, of unclear significance. We did discussed pelvic ultrasound imaging now, declined for now. EKG and serial blood tests not suggestive of heart attack at this time. No imaging confirmation for any blood clot to the lungs, or pneumonia, or other abdominopelvic or chest findings for discomfort. Consider musculoskeletal strain or musculoskeletal cause of the symptoms. Also consider early shingles, if there should appear a rash with vesicles, as sometimes there is only pain initially before appearance of rash. Take Tylenol and or Motrin as needed for discomfort. Trial of Robaxin muscle relaxant use if you choose, prescription sent to your pharmacy. Further testing as an outpatient for now. Recheck if symptoms are persisting Thursday with your regular provider. Return earlier to this/nearest emergency department for any change worsening symptoms or any concerns prior Prescriptions: New methocarbamol 500 mg tablet 500 mg PO TID 7 Days Qty: 21 0RF No Action rosuvastatin 10 mg tablet 10 mg PO ONCE PM Referrals: ProviderBob [Primary Care Provider] - Stand Alone Forms: Patient Portal/API
[2024-02-19 07:48] LABS: Add Manual Diff / Slide Review NO; Basophils Absolute Auto 0 /uL (0-100); Basophils Percent Auto 0.2 % (0-2); Eosinophils Absolute Auto 100 /uL (0-450); Eosinophils Percent Auto 1.3 % (2-4); Hematocrit 40.5 % (36-46); Hemoglobin 14.2 g/dL (12.0-16.0); Lymphocytes Absolute Auto 3100 /uL (1100-4500); Lymphocytes Percent Auto 33.1 % (25-40); Mean Corpuscular HGB Conc 35.2 % (30-36); Mean Corpuscular Hemoglobin 31.2 PG (26-34); Mean Corpuscular Volume 88.9 fL (80-100); Monocytes Absolute Auto 400 /uL (0-900); Monocytes Percent Auto 4.8 % (3-14); Neutrophils Absolute Auto 5700 /uL (1500-7000); Neutrophils Percent Auto 60.6 % (50-75); Platelet Count 211 X10^3/uL (150-400); Red Blood Cell Count 4.55 X10^6/uL (4.0-5.2); Red Cell Distribution Width 12.9 % (11.6-14.8); White Blood Cell Count 9.3 X10^3/uL (4.5-11.0)
[2024-02-19 08:00] LABS: Alanine Aminotransferase 22 IU/L (<35); Albumin 4.3 g/dL (3.5-5.0); Albumin Globulin Ratio 1.5 (1.0-2.8); Alkaline Phosphatase 75 U/L (38-126); Aspartate Aminotransferase 22 IU/L (14-36); BUN Creatinine Ratio 11.4 (6-22); Bilirubin Total 0.6 mg/dL (0.2-1.3); Blood Urea Nitrogen 10 mg/dL (7-17); Calcium 8.9 mg/dL (8.4-10.2); Carbon Dioxide 24 mmol/L (22-32); Chloride 106 mmol/L (98-107); Creatine Kinase 73 U/L (30-135); Estimated Glomerular Filt Rate > 60 mL/min (>60); Globulin 2.9 g/dL (1.7-4.1); Glucose 111 mg/dL (70-100); HEMOLYSIS < 15 (0-50); Lipase 38 U/L (23-300); Magnesium 2.2 mg/dL (1.6-2.3); Potassium 3.6 mmol/L (3.4-5.1); Sodium 138 mmol/L (137-145); Total Protein 7.2 g/dL (6.3-8.2)
[2024-02-19 08:10] LABS: Prothrombin Time 11.6 SECONDS (9.4-12.5)
[2024-02-19 08:12] LABS: NT-proBNP (BNP-Adult 18+) 124 pg/mL (<125); Troponin I < 0.012 ng/mL (0.01-0.034)
[2024-02-19 08:13] LABS: PTT Partial Thromboplastin Tim 35 SECONDS (25.1-36.5)
--- NOTE | 2024-02-19 08:20 | DI.CT.S_ITS ---
PROCEDURE: CT ANGIO CHEST ABDOMEN PELVIS INDICATIONS: left lower chest pain, hx PE, hx kidney stones, hx ov cysts TECHNIQUE: Precontrast 5 mm thick sections acquired from the lung apices to the iliac crests. After the administration of intravenous contrast, 2.5 mm thick sections again acquired from the lung apices to the iliac crests. Maximum intensity projection (MIP) oblique sagittal and coronal reformats were then acquired. For radiation dose reduction, the following was used: automated exposure control. COMPARISON: None. FINDINGS: Image quality: Diagnostic. AORTA and its attachments: Normal caliber thoracic and abdominal aorta without dissection. Normal variant 4 vessel arch anatomy. Great vessel origins are widely patent. Celiac, SMA, and JOSIAS are widely patent, as are the renal arteries. Common iliacs and external iliacs and common femorals are widely patent. Pulmonary tree: No acute pulmonary emboli. CHEST: Lower Neck: No enlarged lymph nodes. Thyroid: No thyroid nodules which require sonographic evaluation. Axillae: No enlarged lymph nodes. Chest Wall: Unremarkable. Lungs and Pleura: No pneumothorax or pleural effusions. No consolidation or suspicious nodules. Heart: Heart size is normal. No pericardial effusion. Thoracic Vessels: Pulmonary arteries demonstrate normal size. Mediastinum and Lindsay: No enlarged lymph nodes. Esophagus: No wall thickening. No hiatal hernia. ABDOMEN: Liver: No solid mass. Gallbladder: No radiopaque gallstones or wall thickening. Biliary ducts: No biliary dilation. Pancreas: No ductal dilation. Spleen: Size is within normal limits. Adrenal Glands: No adrenal nodules. Kidneys and Ureters: No hydronephrosis. No solid mass. No complex renal cystic lesion which requires follow up. Stomach and Bowel: Normal colonic caliber, without significant wall thickening. Peritoneum: No abnormal intraperitoneal fluid. No free air. Ventral Wall: No hernia. Abdominal Nodes: No retroperitoneal or mesenteric adenopathy by size criteria. Vessels: Inferior vena cava is normal in size. PELVIS: Pelvic Organs: Uterus is surgically absent. No adnexal ma 2.5 cm right ovarian cyst. sses.. Bladder: Unremarkable. Pelvic Nodes: No enlarged lymph nodes. Miscellaneous: No inguinal hernias are seen. Bones: Unremarkable. IMPRESSION: 1. Unremarkable thoracic and abdominal aorta. 2. No acute pulmonary emboli. 3. Remote hysterectomy. 4. 2.5 cm right adnexal cyst. 5. No acute process noted in the chest, abdomen, and pelvis. Dictated by: Srinivas Theodore M.D. on 02/19/2024 at 9:32 Approved by: Srinivas Theodore M.D. on 02/19/2024 at 9:49
[2024-02-19] MEDS: SODIUM CHLORIDE 0.9% 1,000 ML 500 ML IV (08:45)
--- NOTE | 2024-02-19 10:16 | PC.NURSE ---
Provider gave verbal order to stop the HCG that he had placed as he notes patient has had hysterectomy previously. This RN stopped the order in electronic record per his verbal order.
[2024-02-19 10:17] LABS: Troponin I < 0.012 ng/mL (0.01-0.034)
[2024-02-19 10:42] LABS: HCG Quantitative /Beta subunit < 2.39 mIU/mL
== END 2024-02-19 10:38 | disposition home or self-care (01) ==
PROVIDERS: Emergency Provider Emergency Medicine
DX: R07.9 Chest pain, unspecified (principal); N83.201 Unspecified ovarian cyst, right side; R07.81 Pleurodynia
CPT/HCPCS: 36415; 71045; 71275; 74174; 80053; 82550; 83690; 83735; 83880; 84484; 84702; 85025; 85610; 85730; 93005; 93010; 96360; 96361; 99284

== ENCOUNTER → 2024-04-18 07:46 | Outpatient (CLI) | payer OTHER, SELFPAY ==
[2024-04-18 09:00] LABS: Alanine Aminotransferase 23 IU/L (<35); Albumin 3.8 g/dL (3.5-5.0); Albumin Globulin Ratio 1.3 (1.0-2.8); Alkaline Phosphatase 76 U/L (38-126); Aspartate Aminotransferase 19 IU/L (14-36); BUN Creatinine Ratio 11.6 (6-22); Bilirubin Total 0.5 mg/dL (0.2-1.3); Blood Urea Nitrogen 10 mg/dL (7-17); Carbon Dioxide 24 mmol/L (22-32); Chloride 106 mmol/L (98-107); Cholesterol 134 mg/dL (140-199); Estimated Glomerular Filt Rate > 60 mL/min (>60); Glucose 109 mg/dL (70-100); HDL Cholesterol 36 mg/dL (40-60); HEMOLYSIS < 15 (0-50); LDL Cholesterol Calculated 64 mg/dL (<100); Potassium 4.1 mmol/L (3.4-5.1); Sodium 136 mmol/L (137-145); Total Protein 6.8 g/dL (6.3-8.2); Triglycerides 171 mg/dL (35-150)
== END ==
LOC: LAB 07:48
PROVIDERS: Referring Provider Nurse Practitioner Acute Care; Visit Provider Nurse Practitioner Acute Care
DX: E78.5 Hyperlipidemia, unspecified (principal)
CPT/HCPCS: 36415; 80053; 80061

== ENCOUNTER 2024-12-01 08:39 | Day surgery (SDC) | payer OTHER, SELFPAY ==
--- NOTE | 2024-12-01 | PATH_ITS ---
[facility] Accession Number: [id number] No. of containers..02 Tissue . 01 Material submitted: . PART A: colon - COLON, TRANSVERSE POLYP PART B: colon - COLON, DESCENDING POLYPS . 01 Diagnosis: A: TRANSVERSE COLON, POLYPECTOMY: Tubular adenoma. - B: DESENDING COLON, POLYPECTOMIES: Fragments of tubular adenoma. [facility] 12/06/2024 1453 Local . 01 Electronically signed: . Liza Chen MD, Pathologist NPI- [id number] . 01 Gross description: . A. Received in formalin with two identifiers and transverse colon polyp, is a single ocampo soft tissue fragment 1.5 cm in greatest dimension. Submitted in cassette A1. B. Received in formalin with two identifiers and descending colon polyp, are four ocampo soft tissue fragments ranging from 0.3 x 0.3 x 0.2 cm to 0.7 x 0.7 x 0.4 cm. The two largest fragments are bisected, and the specimen is submitted entirely in cassette B1. ([id number]) /[facility] 12/04/2024 0621 Local . 01 Pathologist provided ICD-10: Z12.11 . 01 CPT . 286836, [id number] Specimen Comment: A courtesy copy of this report has been sent to [phone] Performed at: [address] [address], [place], [place] [id number] MD Brandon Tay MD Phone: [phone]
[2024-12-01 09:21] VITALS: BP 119/72; PULSE 83; RESP 16; TEMP 36.4; O2SAT 97
[2024-12-01] MEDS: LACTATED RINGERS 1,000 ML 42 ML IV (09:22)
--- NOTE | 2024-12-01 09:57 | P.HP_ITS ---
History of Present Illness History of Present Illness Date Patient Seen: 12/01/24 Time Patient Seen: 09:57 Chief complaint: Screening Colonoscopy Narrative: Lexii is a 44-year-old woman who is here for a screening colonoscopy. She has never had a colonoscopy before. No family history of colon cancer. [facility] Medical History Kidney stone Patient denies significant medical history Surgical History H/O vaginal hysterectomy Social History marital status: Smoking Status: Former smoker Meds Home Medications and Allergies Home Medications Medication Instructions Recorded Confirmed Type rosuvastatin 10 mg tablet 10 mg PO ONCE PM 06/06/23 06/06/23 History sodium,potassium,mag sulfates 17.5 See Rx Instructions PO .COMPLEX 09/29/24 Rx gram-3.13 gram-1.6 gram oral soln #354 mL (Suprep Bowel Prep Kit) Allergies Allergy/AdvReac Type Severity Reaction Status Date / Time No Known Drug Allergies Allergy Verified 02/19/24 07:42 Exam Vital Signs (past 8 hours): - 12/01/24 09:21 Temperature 97.5 F L Pulse Rate 83 Respiratory Rate 16 Blood Pressure 119/72 Pulse Oximetry 97 Oxygen Delivery Method Room Air Oxygen Delivery Method Room Air Const General: healthy appearing Assessment & Plan Assessment and plan (1) Colon cancer screening: Status: Acute Plan Colonoscopy Time-Based Coding :: [TOTAL MINUTES] spent with patient and on the chart (including review of chart, obtaining history, exam, reviewing outside data, placing orders, documenting exam and treatment plan, and counseling patient) on [DATE]. PROFEE Assistant Real Estate Manager Document charge(s): No
[2024-12-01 10:30] VITALS: BP 125/77; PULSE 80; RESP 14; TEMP 36.9; O2SAT 97
[2024-12-01 10:35] VITALS: BP 120/76; PULSE 70; RESP 14; O2SAT 97
--- NOTE | 2024-12-01 10:35 | PM.OP.COLON ---
Operative Date/Time/Diagnoses Date of procedure: 12/01/24 Time of procedure: 10:35 Pre-op diagnosis: Colon cancer screening Post-op diagnosis: same Procedure & Clinicians Study performed: Colonoscopy Same procedure as scheduled: Yes Surgeon: Gennaro Mccoy Procedure Notes Procedure in detail: Surgeon: Gennaro Mccoy MD Anesthesia: Tegan Kolb CRNA Procedure: The patient was brought to the endoscopy suite, placed in left lateral decubitus position. The patient was connected to monitoring devices. A time-out was performed. Sedation was administered. Once the patient was adequately sedated, a digital rectal exam was performed and was normal. The scope was then inserted and advanced to the cecum where the appendiceal orifice was identified and photographed. The scope was then slowly withdrawn over greater than 6 minutes. The mucosa was thoroughly inspected. There was 7 mm polyp in the transverse colon removed with a cold snare. There were two 1 cm polyps in the descending colon removed with cold snare and sent together. The second biopsy wound was bleeding briskly and 2 hemoclips were applied with good effect. The scope was retroflexed in the rectum. No other abnormalities were found. The scope was straightened and removed. The patient was awakened and brought to recovery. Scope withdrawal time: 13 minutes Sedation time: 19 minutes EBL: 5 mL Findings: A 7 mm polyp in the transverse colon and two 1 cm polyps in the descending colon Post-procedure Disposition: PACU
[2024-12-01 10:40] VITALS: BP 117/71; PULSE 66; RESP 12; O2SAT 97
[2024-12-01 10:46] VITALS: BP 125/71; PULSE 60; RESP 12; TEMP 36.6; O2SAT 98
[2024-12-01 11:17] VITALS: BP 125/75; PULSE 62; RESP 12; TEMP 36.6; O2SAT 98
== END 2024-12-01 11:18 | disposition home or self-care (01) ==
PROVIDERS: PCP Nurse Practitioner Family; Referring Provider Surgery; Visit Provider Surgery
PROC: 0DJD8ZZ Inspection of Lower Intestinal Tract, Via Natural or Artificial Opening Endoscopic (ICD-10-PCS; CPT 45378; principal; 2024-12-01 09:45)
DX: Z12.11 Encounter for screening for malignant neoplasm of colon (principal); D12.3 Benign neoplasm of transverse colon; D12.4 Benign neoplasm of descending colon
CPT/HCPCS: 45385; J2704

== ENCOUNTER 2025-01-18 14:31 | Emergency (ER) | payer OTHER, SELFPAY ==
[2025-01-18 14:56] VITALS: BP 130/63; PULSE 97; RESP 18; TEMP 36.4; O2SAT 97; BMI 31.7
--- NOTE | 2025-01-18 15:02 | DI.RAD.S_ITS ---
PROCEDURE: XR LUMBAR SPINE 2-3V INDICATIONS: back pain TECHNIQUE: 3 views of the lumbar spine were acquired. COMPARISON: None. FINDINGS: Bones: 5 [id number] vertebrae are present. There is very mild rightward curvature of thoracolumbar spine with apex at T12 level. 5 mm anterolisthesis of L4 on L5 is seen. Degenerative endplate changes and bilateral facet arthrosis throughout lumbar spine more notably at L4-5 and L5-S1 levels. No vertebral body compression fractures. No suspicious bony lesions. Soft tissues: Overlying bowel gas pattern is normal. No suspicious soft tissue calcifications. IMPRESSION: No acute vertebral body compression fracture. Grade 1 anterolisthesis of L4 on L5. Degenerative disc disease throughout lumbar spine as above. Dictated by: Surya Graves M.D. on 01/18/2025 at 14:40 Approved by: Surya Graves M.D. on 01/18/2025 at 14:46
--- NOTE | 2025-01-18 18:11 | ED_ITS ---
HPI - Back Pain/Injury <Luz Bowen PA-C - Last Filed: 01/18/25 18:28> General Chief Complaint: Back Pain/Injury Stated Complaint: Lower back pain x 4 days Time Seen by Provider: 01/18/25 17:17 Source: patient History of Present Illness HPI Narrative: 44-year-old female with no significant medical history here today for low back pain that started 3 days ago. States she was on a trip to [place] and had done a lot of walking over the weekend, but can not recall any specific injury or strained her back. On the plane ride home on Thursday she started feeling low back discomfort which has worsened since getting home. She has tried taking ibuprofen intermittently without much relief. She also tried taking Robaxin and Flexeril which he had left over from a prior injury. Neither of those seem to help much. She denies any numbness or tingling in her extremities, weakness in her legs, bowel or bladder incontinence, or any other symptoms. The back pain is located in her central low back and does not radiate. She has no history of back trauma, back surgeries, IV drug use, prolonged corticosteroid use, she or any other risk factors Related Data Home Medications ?Medication ?Instructions ?Recorded ?Confirmed rosuvastatin 10 mg tablet 10 mg PO ONCE PM 06/06/23 Previous Rx's ?Medication ?Instructions ?Recorded baclofen 10 mg tablet 10 mg PO BID PRN muscle spas m #20 01/18/25 tabs Allergies Allergy/AdvReac Type Severity Reaction Status Date / Time No Known Drug Allergies Allergy Verified 01/18/25 14:58 Review of Systems <Luz Bowen PA-C - Last Filed: 01/18/25 18:28> Review of Systems ROS Unobtainable: All systems reviewed & are unremarkable except as noted in HPI and below Patient History <Luz Bowen PA-C - Last Filed: 01/18/25 18:28> Medical History Kidney stone Patient denies significant medical history Surgical History H/O vaginal hysterectomy Social History marital status: Smoking Status: Never smoker Smoking Status: Never smoker alcohol intake frequency: holidays/special occasions only Exam <Luz Bowen PA-C - Last Filed: 01/18/25 18:28> Narrative Exam Narrative: GENERAL: [44] year old patient appears stated age. Well-developed patient, in no acute distress. HEAD: Atraumatic. Normocephalic. EYES: Pupils equal round and reactive. Extraocular motions intact. No scleral icterus. No injection or drainage. ENT: Nose without bleeding, purulent drainage. Throat without erythema, tonsillar hypertrophy or exudate. Airway patent. NECK: Trachea midline. Non tender EXTREMITIES: No edema or joint tenderness. BACK: Nontender without deformity or crepitus. No flank tenderness. Spine is nontender and normal alignment with no step-offs or crepitus. Normal strength and sensation in bilateral extremities. Normal gait. NEURO: AOx3. SKIN: No rash or erythema of visible areas Initial Vital Signs Initial Vital Signs: Vital Signs Temperature 97.6 F 01/18/25 14:56 Pulse Rate 97 H 01/18/25 14:56 Respiratory Rate 18 01/18/25 14:56 Blood Pressure 130/63 01/18/25 14:56 Pulse Oximetry 97 01/18/25 14:56 Oxygen Delivery Method Room Air 01/18/25 14:56 <Connor Ruiz MD - Last Filed: 01/30/25 21:02> Initial Vital Signs Initial Vital Signs: Vital Signs Temperature 97.6 F 01/18/25 14:56 Pulse Rate 97 H 01/18/25 14:56 Respiratory Rate 18 01/18/25 14:56 Blood Pressure 130/63 01/18/25 14:56 Pulse Oximetry 97 01/18/25 14:56 Oxygen Delivery Method Room Air 01/18/25 14:56 Course <Luz Bowen PA-C - Last Filed: 01/18/25 18:28> Orders Ordered: Discontinued Medications Acetaminophen (Acetaminophen 325 Mg Tablet) 975 mg PO NOW ONE Stop: 01/18/25 14:41 Last Admin: 01/18/25 14:43 Dose: Not Given Documented By: MPO Ketorolac Tromethamine (Ketorolac 30 Mg/Ml Vial) 30 mg IM NOW ONE Stop: 01/18/25 18:11 Last Admin: 01/18/25 18:29 Dose: 30 mg Documented By: BT Vital Signs Vital signs: Vital Signs - 8 hr 01/18/25 14:56 Temperature 97.6 F Pulse Rate 97 H Respiratory Rate 18 Blood Pressure 130/63 Pulse Oximetry 97 Oxygen Delivery Method Room Air <Connor Ruiz MD - Last Filed: 01/30/25 21:02> Orders Ordered: Discontinued Medications Acetaminophen (Acetaminophen 325 Mg Tablet) 975 mg PO NOW ONE Stop: 01/18/25 14:41 Last Admin: 01/18/25 14:43 Dose: Not Given Documented By: MPO Ketorolac Tromethamine (Ketorolac 30 Mg/Ml Vial) 30 mg IM NOW ONE Stop: 01/18/25 18:11 Last Admin: 01/18/25 18:29 Dose: 30 mg Documented By: BT Vital Signs Vital signs: Vital Signs - 8 hr 01/18/25 14:56 Temperature 97.6 F Pulse Rate 97 H Respiratory Rate 18 Blood Pressure 130/63 Pulse Oximetry 97 Oxygen Delivery Method Room Air MDM - Back Pain/Injury <Luz Bowen PA-C - Last Filed: 01/18/25 18:28> Imaging Data Xray Lumbar: Radiologist's Impression: [place] [address] XRay Report Signed Patient: Lexii Arboleda MR#: [id number] : 1980 Acct:[id number] Age/Sex: 44 / F Date of Service: 01/18/25 Loc: ED Accession Number: [id number] Procedure: XR lumbar spine 2-3V Ordering Provider: Connor Ruiz MD PROCEDURE: XR LUMBAR SPINE 2-3V INDICATIONS: back pain TECHNIQUE: 3 views of the lumbar spine were acquired. COMPARISON: None. FINDINGS: Bones: 5 [id number] vertebrae are present. There is very mild rightward curvature of thoracolumbar spine with apex at T12 level. 5 mm anterolisthesis of L4 on L5 is seen. Degenerative endplate changes and bilateral facet arthrosis throughout lumbar spine more notably at L4-5 and L5-S1 levels. No vertebral body compression fractures. No suspicious bony lesions. Soft tissues: Overlying bowel gas pattern is normal. No suspicious soft tissue calcifications. IMPRESSION: No acute vertebral body compression fracture. Grade 1 anterolisthesis of L4 on L5. Degenerative disc disease throughout lumbar spine as above. Dictated by: Surya Graves M.D. on 01/18/2025 at 14:40 Approved by: Surya Graves M.D. on 01/18/2025 at 14:46 [facility] Narrative Medical decision making narrative: Multiple etiologies for patient's symptoms considered including, but not limited to: Lumbar strain, lumbar radiculopathy, sciatica, kidney stone, UTI, constipation Back x-ray unremarkable except for 5 mm anterolisthesis at the L4-5 region. Unclear if this is related to patient's pain or not. Patient has no symptoms of a kidney stone or UTI. She has no radiation of her pain to her extremities. She has no weakness or impaired sensation in the lower extremities. She has no bowel or bladder dysfunction or saddle anesthesia. She has not no other concerning risk factors related to her back pain. This is likely musculoskeletal lumbar pain which should respond well to Toradol and muscle relaxers. Toradol 30 mg given here in the ED along with a prescription for baclofen. We discussed return precautions should she develop any of the aforementioned concerning signs or symptoms. Findings and discharge diagnosis discussed with patient/family followed by verbalization of understanding Return precautions discussed with patient/family whom verbalize understanding of diagnosis and plan Discharge Plan Departure Patient Disposition: Home Clinical Impression: Strain of lumbar region Instructions: DI for Back Strain or Sprain Activity Restrictions/Additional Instructions: Thank you for choosing us to care for you today. You were evaluated for your low back pain. Your x-ray does not show anything very concerning. There is an area where your vertebrae may have slipped forward slightly but it is unclear whether this is the cause of your pain or if you are having pain from a different reason. There are no alarming symptoms that require additional evaluation or imaging at this time. You were given a medication called Toradol. Please wait until tomorrow evening to take any more ibuprofen. You are being given a prescription for muscle relaxers. You may use these twice a day as ne eded but they will primarily be beneficial when used at bedtime. Please follow up with your primary care provider if your back pain is not improving in the next 1-2 weeks with rest and light stretching/range of motion exercises. Return to the ED if you have any numbness/tingling or weakness in your lower extremities. Prescriptions: New baclofen 10 mg tablet 10 mg PO BID PRN (Reason: muscle spasm) Qty: 20 0RF No Action rosuvastatin 10 mg tablet 10 mg PO ONCE PM Referrals: Maria Isabel Beyer FNP-C [Primary Care Provider, Nursing] Stand Alone Forms: Patient Portal/API ED Sign-out <Connor Ruiz MD - Last Filed: 01/30/25 21:02> Cosign ED Attending Cosignature Attestation: I was immediately available in the department for consultation. ?This documentation has been reviewed and I agree with assessment and plan. Supervised by Connor Ruiz MD
[2025-01-18] MEDS: KETOROLAC 30 MG/ML VIAL IM (18:29)
[2025-01-18 18:39] VITALS: BP 132/79; PULSE 85; RESP 16; O2SAT 97
== END 2025-01-18 18:40 | disposition home or self-care (01) ==
PROVIDERS: Emergency Provider Physician Assistant; PCP Nurse Practitioner Family
DX: S39.012A Strain of muscle, fascia and tendon of lower back, initial encounter (principal); X58.XXXA Exposure to other specified factors, initial encounter; M43.16 Spondylolisthesis, lumbar region
CPT/HCPCS: 72100; 96372; 99283; 99284; J1885

== ENCOUNTER → 2025-04-20 08:37 | Outpatient (CLI) | payer OTHER, SELFPAY ==
--- NOTE | 2025-04-20 08:38 | DI.MG.S_ITS ---
MM diagnostic mammo unilat RT, US breast RT limited: 04/20/2025 BI-RADS: 3 CLINICAL: 44-year old female for right diagnostic mammogram and right diagnostic breast ultrasound. The patient presents for additional evaluation of an inconclusive screening mammogram - asymmetry. Tyrer-Cuzick lifetime risk of 5.7%. No personal or first- degree family history of breast cancer. PRIOR EXAMS 03/30/2025, 09/28/2023, 03/27/2022. MAMMOGRAPHY TECHNIQUE: 2D and 3D (tomosynthesis) digital mammographic views obtained, with additional images as needed for full coverage. Current study was also evaluated with a Computer Aided Detection (CAD) system. ULTRASOUND TECHNIQUE Real-time reynolds scale and color doppler imaging of the area of clinical interest was performed with image documentation. TARGETED Right Breast Ultrasound: Real-time ultrasound exam was performed focused to area of clinical and/or imaging concern. DENSITY Right: C. The breast is heterogeneously dense, which may obscure small masses. MAMMOGRAPHY FINDINGS Right (finding-1): MLO only, Central, Posterior depth, measuring 0.8cm: Correlating with findings on screening mammogram, there is an asymmetry seen only on one view. This finding projects to the lateral breast on the tomosynthesis images. ULTRASOUND FINDINGS Right: Outer at 9:00, 5 cm from nipple, measuring 0.6 x 1.1 x 0.3 cm: There are clustered microcysts. Doppler shows no vascularity. This is an incidental finding. Right (finding-1): Upper Outer at 9:00, 6 cm from nipple: There is no sonographic abnormality to account for imaging concern on mammography. IMPRESSION: Right (Asymmetry): MLO only, Central, Posterior depth, measuring 0.8cm * Probably Benign. RECOMMENDATIONS Right: MLO only, Central, Posterior depth * Six month followup with diagnostic mammography and diagnostic ultrasound. Ultrasound to be performed only if needed. COMMENTS: Findings and recommendations were conveyed to the patient during today's evaluation. OVERALL ASSESSMENT CATEGORY BI-RADS-3: Probably Benign. ELECTRONICALLY SIGNED: Emelia Cha M.D. on 04/20/2025 at 09:56:38 AM PT Interpreting Station ID: [id number]
== END ==
LOC: MAMMO 08:38
PROVIDERS: PCP Nurse Practitioner Family; Referring Provider Nurse Practitioner Family; Visit Provider Nurse Practitioner Family
DX: R92.8 Other abnormal and inconclusive findings on diagnostic imaging of breast (principal); R92.331 Mammographic heterogeneous density, right breast
CPT/HCPCS: 76642; 77065; G0279